=== PATIENT | female | born 1965 | race Caucasian/White ===

== ENCOUNTER 2021-03-13 15:00 | Emergency (ER) | payer OTHER, SELFPAY ==
--- NOTE | ~2021-03-13 | US_ITS ---
EXAMINATION: US VENOUS ULTRASOUND WITH DOPPLER LOWER EXTREMITY, LEFT CLINICAL INFORMATION: Swollen leg status post hysterectomy COMPARISON: None TECHNIQUE: Ultrasound of the deep veins is performed from the hip to the calf with compression sonography and color and pulse Doppler assessment. Spectral analysis with color-flow imaging is performed. FINDINGS: There is normal venous compression and respiratory variation and augmented flow. The visualized common femoral vein, superficial femoral vein, profunda femoral vein, popliteal vein, and the trifurcation region shows no evidence of deep venous thrombosis. There is no significant popliteal fossa cyst. There is a prominent left groin lymph node measuring 0.6 cm. US/US venous duplex LE LT IMPRESSION: No DVT demonstrated in the left lower extremity. Left groin lymph node may be reactive in the setting of recent surgical procedure.
[2021-03-13 15:35] VITALS: BP 104/66; PULSE 68; RESP 18; TEMP 37.1; O2SAT 96; BMI 24.9
--- NOTE | 2021-03-13 16:03 | PC.NURSE ---
LLE is red, taught, swollen, warm to touch. Pt states she had negative U/S last week and is currently on po abx. limping.
[2021-03-13 16:13] VITALS: BP 113/67; PULSE 61; RESP 16; TEMP 36.8; O2SAT 98
--- NOTE | 2021-03-13 16:29 | ED_ITS ---
HPI - General Adult General Chief complaint: General Medical <Manuelito Guerrero MD - Last Filed: 03/13/21 16:33> Stated complaint: swollen lt leg <Manuelito Guerrero MD - Last Filed: 03/13/21 16:33> Time Seen by Provider: 03/13/21 16:29 <Manuelito Guerrero MD - Last Filed: 03/13/21 16:33> Mode of arrival: ambulatory <Manuelito Guerrero MD - Last Filed: 03/13/21 16:33> Limitations: no limitations <Manuelito Guerrero MD - Last Filed: 03/13/21 16:33> History of Present Illness HPI narrative: swollen leg for 3 weeks, s/p hysterectomy. patient has had negative US and ddimer but her swelling is now worse. [facility] Now on 4 days of keflex with no improvement <Manuelito Guerrero MD - Last Filed: 03/13/21 16:33> Onset (ago): week(s) <Manuelito Guerrero MD - Last Filed: 03/13/21 16:33> Location: lower extremity <Manuelito Guerrero MD - Last Filed: 03/13/21 16:33> Severity: moderate <Manuelito Guerrero MD - Last Filed: 03/13/21 16:33> Relieving factors: none <Manuelito Guerrero MD - Last Filed: 03/13/21 16:33> Exacerbating factors: none <Manuelito Guerrero MD - Last Filed: 03/13/21 16:33> Related Data Home medications: Previous Rx's Medication Instructions Recorded doxycycline hyclate 100 mg capsule 100 mg PO BID 7 Days #14 cap 03/13/21 hydrocodone 5 mg-acetaminophen 325 1 tab PO Q6H PRN #12 tab 03/13/21 mg tablet <Manuelito Guerrero MD - Last Filed: 03/13/21 16:33> Allergies/adverse reactions: Allergies Allergy/AdvReac Type Severity Reaction Status Date / Time benztropine [From Cogentin] Allergy Unknown Verified 03/13/21 15:41 <Manuelito Guerrero MD - Last Filed: 03/13/21 16:33> Review of Systems Constitutional: Constitutional: Reports no additional constitutional complaints <Manuelito Guerrero MD - Last Filed: 03/13/21 16:33> Eyes: Eyes: Reports no additional eye complaints <Manuelito Guerrero MD - Last Filed: 03/13/21 16:33> ENT: Denies dizziness <Manuelito Guerrero MD - Last Filed: 03/13/21 16:33> Cardiovascular: Cardiovascular: Reports no additional cardiovascular complaints <Manuelito Guerrero MD - Last Filed: 03/13/21 16:33> Respiratory: Respiratory: Reports as per HPI <Manuelito Guerrero MD - Last Filed: 03/13/21 16:33> Gastrointestinal: Gastrointestinal: Reports no additional gastrointestinal complaints <Maneulito Guerrero MD - Last Filed: 03/13/21 16:33> Genitourinary: Genitourinary: Reports no additional female genitourinary complaints <Manuelito Guerrero MD - Last Filed: 03/13/21 16:33> Musculoskeletal: Musculoskeletal: Reports no additional musculoskeletal complaints <Manuelito Guerrero MD - Last Filed: 03/13/21 16:33> Integumentary/Breasts: Skin/Breast: Denies rash <Manuelito Guerrero MD - Last Filed: 03/13/21 16:33> Neurologic: Reports system reviewed and no additional complaints, except as documented, Denies dizziness and Denies Sensory deficit (Neuro) <Manuelito Guerrero MD - Last Filed: 03/13/21 16:33> Psychiatric: Psychiatric: Denies anxiety <Manuelito Guerrero MD - Last Filed: 03/13/21 16:33> [facility] Past Medical History Medical History: Medical History Asthma Depression Insomnia Mood disorder <Manuelito Guerrero MD - Last Filed: 03/13/21 16:33> Surgical History: Surgical History H/O: hysterectomy <Manuelito Guerrero MD - Last Filed: 03/13/21 16:33> Social History Social History: Social History Alcohol intake: never Patient Tobacco Use Status: Never used Tobacco Use of substances other than those prescribed or required for medical reasons: No Advance Directives: No Advance Directives Information Provided: Yes <Manuelito Guerrero MD - Last Filed: 03/13/21 16:33> Physical Exam Vital Signs: Vital Signs: Last Vital Signs Temp 97.7 F 03/13/21 17:40 Pulse 62 03/13/21 17:30 Resp 18 03/13/21 17:30 BP 117/91 H 03/13/21 17:30 Pulse Ox 96 03/13/21 17:30 Body Mass Index 24.9 <Manuelito Guerrero MD - Last Filed: 03/13/21 16:33> Vital Signs: Last Vital Signs Temp 97.7 F 03/13/21 17:40 Pulse 62 03/13/21 17:30 Resp 18 03/13/21 17:30 BP 117/91 H 03/13/21 17:30 Pulse Ox 96 03/13/21 17:30 Body Mass Index 24.9 <Rupinder Garcia DO - Last Filed: 03/13/21 18:28> Const: General: healthy appearing <Manuelito Guerrero MD - Last Filed: 03/13/21 16:33> Nutritional Appearance: average body habitus <Manuelito Guerrero MD - Last Filed: 03/13/21 16:33> Orientation/consciousness: oriented to person and patient oriented x3 <Manuelito Guerrero MD - Last Filed: 03/13/21 16:33> Limitations: no limitations <Manuelito Guerrero MD - Last Filed: 03/13/21 16:33> HENMT: Head: Yes normal to inspection <Manuelito Guerrero MD - Last Filed: 03/13/21 16:33> Ears: external ears normal <Manuelito Guerrero MD - Last Filed: 03/13/21 16:33> General nose exam: Normal external nose present <Manuelito Guerrero MD - Last Filed: 03/13/21 16:33> Mouth: Normal oral and palatal mucosa present and oropharynx normal <Manuelito Guerrero MD - Last Filed: 03/13/21 16:33> Throat: Yes posterior oropharynx normal <Manuelito Guerrero MD - Last Filed: 03/13/21 16:33> Eyes: General: appearance normal, both eyes and all related structures <Manuelito Guerrero MD - Last Filed: 03/13/21 16:33> Neck: Other: supple <Manuelito Guerrero MD - Last Filed: 03/13/21 16:33> Neck: Yes normal visual inspection <Manuelito Guerrero MD - Last Filed: 03/13/21 16:33> Chest: Chest palpation & inspection: normal inspection of the chest <Manuelito Guerrero MD - Last Filed: 03/13/21 16:33> Resp: Auscultation: clear to auscultation bilaterally <Manuelito Guerrero MD - Last Filed: 03/13/21 16:33> Cardio: Jugular venous distension: no JVD <Manuelito Guerrero MD - Last Filed: 03/13/21 16:33> Rate: regular rate <Manuelito Guerrero MD - Last Filed: 03/13/21 16:33> Rhythm: regular rhythm <Manuelito Guerrero MD - Last Filed: 03/13/21 16:33> Heart sounds: S1 normal heart sound present and S2 normal heart sound present <Manuelito Guerrero MD - Last Filed: 03/13/21 16:33> GI: Inspection: Yes normal to inspection <Manuelito Guerrero MD - Last Filed: 03/13/21 16:33> Palpation (GI): Soft to palpation, nontender and No hepatosplenomegaly present <Manuelito Guerrero MD - Last Filed: 03/13/21 16:33> Auscultation: normal bowel sounds <Manuelito Guerrero MD - Last Filed: 03/13/21 16:33> : General: Yes no CVA tenderness <Manuelito Guerrero MD - Last Filed: 03/13/21 16:33> Back/Spine/Pelvis: Back: no CVA tenderness <Manuelito Guerrero MD - Last Filed: 03/13/21 16:33> Skin: General skin exam: no rashes or lesions noted <Manuelito Guerrero MD - Last Filed: 03/13/21 16:33> Neuro: General: oriented to person and patient oriented x3 <Manuelito Guerrero MD - Last Filed: 03/13/21 16:33> Cranial nerves: Yes CN's II-XII intact bilaterally <Manuelito Guerrero MD - Last Filed: 03/13/21 16:33> Motor exam (neuro): 5/5 motor strength present throughout <Manuelito Guerrero MD - Last Filed: 03/13/21 16:33> Sensory Exam: No Sensory deficit (Neuro) <Manuelito Guerrero MD - Last Filed: 03/13/21 16:33> Extrem: Other: very swollen leg good pulse no erythema <Manuelito Guerrero MD - Last Filed: 03/13/21 16:33> Psych: Appearance: grossly normal <Manuelito Guerrero MD - Last Filed: 03/13/21 16:33> Course Course Course Narrative: sign out received - PO doxycycline will add on - PO pain medications given 48 hours to return leg is red and hot to touch, no proximal swelling, 2 neg DVT studies in 1 weeks time <Rupinder Garcia DO - Last Filed: 03/13/21 18:28> Medical Decision Making Lab Data Result diagrams: : 03/13/21 17:38 03/13/21 17:38 <Manuelito Guerrero MD - Last Filed: 03/13/21 16:33> Labs: Lab Results 03/13/21 03/13/21 Range/Units 17:38 17:38 WBC 6.7 (4.8-10.8) X10*3/uL RBC 3.98 L (4.20-5.50) X10*6/uL Hgb 11.2 L (12.0-16.0) g/dl Hct 35.1 L (37-47) % MCV 88.2 (80-98) fL MCH 28.1 (27.0-33.0) pg MCHC 31.9 (31.0-35.0) g/dl RDW 13.1 (11.0-16.0) % Plt Count 231 (160-400) X10*3/uL MPV 9.4 (9.4-12.3) fL Immature Gran % (Auto) 0.6 H (0.0-0.4) % Neut % (Auto) 52.2 (45-73) % Lymph % (Auto) 27.0 (20-40) % [place] % (Auto) 12.8 H (2-11) % Eos % (Auto) 6.8 H (0-4) % Baso % (Auto) 0.6 (0-2) % Lymph # (Auto) 1.8 (1.2-4.9) X10*3/uL [place] # (Auto) 0.9 (0.1-1.2) X10*3/uL Eos # (Auto) 0.5 H (0.0-0.4) X10*3/uL Baso # (Auto) 0.0 (0.0-0.2) X10*3/uL Abs Immat Gran (auto) 0.04 H (0.00-0.03) X10*3/uL Absolute Neuts (auto) 3.5 (2.0-8.3) X10*3/uL Absolute Nucleated RBC 0.000 (0.0-0.012) X10*3/uL Nucleated RBC % (auto) 0.0 (0.0-0.2) /100WBC Sodium 137 (135-145) mmol/L Potassium 4.4 (3.3-5.1) mmol/L Chloride 99 (96-108) mmol/L Carbon Dioxide 32 H (22-29) mmol/L Anion Gap 10 L (12-20) BUN 12 (9-16) mg/dL Creatinine 0.68 (0.5-1.4) mg/dL Estim Creat Clear Calc 86.2 Estimated GFR > 60 Random Glucose 95 (60-115) mg/dL Calcium 9.3 (8.4-10.2) mg/dL <Manuelito Guerrero MD - Last Filed: 03/13/21 16:33> Lab Results 03/13/21 03/13/21 Range/Units 17:38 17:38 WBC 6.7 (4.8-10.8) X10*3/uL RBC 3.98 L (4.20-5.50) X10*6/uL Hgb 11.2 L (12.0-16.0) g/dl Hct 35.1 L (37-47) % MCV 88.2 (80-98) fL MCH 28.1 (27.0-33.0) pg MCHC 31.9 (31.0-35.0) g/dl RDW 13.1 (11.0-16.0) % Plt Count 231 (160-400) X10*3/uL MPV 9.4 (9.4-12.3) fL Immature Gran % (Auto) 0.6 H (0.0-0.4) % Neut % (Auto) 52.2 (45-73) % Lymph % (Auto) 27.0 (20-40) % [place] % (Auto) 12.8 H (2-11) % Eos % (Auto) 6.8 H (0-4) % Baso % (Auto) 0.6 (0-2) % Lymph # (Auto) 1.8 (1.2-4.9) X10*3/uL [place] # (Auto) 0.9 (0.1-1.2) X10*3/uL Eos # (Auto) 0.5 H (0.0-0.4) X10*3/uL Baso # (Auto) 0.0 (0.0-0.2) X10*3/uL Abs Immat Gran (auto) 0.04 H (0.00-0.03) X10*3/uL Absolute Neuts (auto) 3.5 (2.0-8.3) X10*3/uL Absolute Nucleated RBC 0.000 (0.0-0.012) X10*3/uL Nucleated RBC % (auto) 0.0 (0.0-0.2) /100WBC Sodium 137 (135-145) mmol/L Potassium 4.4 (3.3-5.1) mmol/L Chloride 99 (96-108) mmol/L Carbon Dioxide 32 H (22-29) mmol/L Anion Gap 10 L (12-20) BUN 12 (9-16) mg/dL Creatinine 0.68 (0.5-1.4) mg/dL Estim Creat Clear Calc 86.2 Estimated GFR > 60 Random Glucose 95 (60-115) mg/dL Calcium 9.3 (8.4-10.2) mg/dL <Rupinder Garcia DO - Last Filed: 03/13/21 18:28> Discharge Plan Discharge Clinical Impression: Localized swelling of lower leg Cellulitis Qualifiers: Site of cellulitis: extremity Site of cellulitis of extremity: lower extremity Laterality: left Qualified Code(s): L03.116 - Cellulitis of left lower limb <Manuelito Guerrero MD - Last Filed: 03/13/21 16:33> Patient Disposition: Home, Self-Care <Mnauelito Guerrero MD - Last Filed: 03/13/21 16:33> Instructions: Cellulitis (ED) <Manuelito Guerrero MD - Last Filed: 03/13/21 16:33> Additional Instructions: return to ED for any worsening symptoms or concerns return if worsening symptoms or no improvement in 48 hours continue your cephalexin elevate the leg <Manuelito Guerrero MD - Last Filed: 03/13/21 16:33> Prescriptions: New doxycycline hyclate 100 mg capsule 100 mg PO BID 7 Days Qty: 14 RF: 0 hydrocodone-acetaminophen 5-325 mg tablet 1 tab PO Q6H PRN (Reason: pain) Qty: 12 RF: 0 <Manuelito Guerrero MD - Last Filed: 03/13/21 16:33> Stand Alone Forms: Work/School Release <Manuelito Guerrero MD - Last Filed: 03/13/21 16:33>
[2021-03-13 17:30] VITALS: BP 117/91; PULSE 62; RESP 18; O2SAT 96
[2021-03-13 17:40] VITALS: TEMP 36.5
[2021-03-13 17:45] LABS: MANUAL DIFF FLAG NO
[2021-03-13 17:48] LABS: Basophils Percent Auto 0.6 % (0-2); Eosinophils Absolute Auto 0.5 X10*3/uL (0.0-0.4); Eosinophils Percent Auto 6.8 % (0-4); Hematocrit 35.1 % (37-47); Hemoglobin 11.2 g/dl (12.0-16.0); Imm Gran Abs Auto 0.04 X10*3/uL (0.00-0.03); Imm Gran Pct Auto 0.6 % (0.0-0.4); Lymphocytes Absolute Auto 1.8 X10*3/uL (1.2-4.9); Mean Corpuscular HGB Conc 31.9 g/dl (31.0-35.0); Mean Corpuscular Hemoglobin 28.1 pg (27.0-33.0); Mean Corpuscular Volume 88.2 fL (80-98); Mean Platelet Volume 9.4 fL (9.4-12.3); Monocytes Absolute Auto 0.9 X10*3/uL (0.1-1.2); Monocytes Percent Auto 12.8 % (2-11); Neutrophils Absolute Auto 3.5 X10*3/uL (2.0-8.3); Neutrophils Percent Auto 52.2 % (45-73); Platelet Count 231 X10*3/uL (160-400); Red Blood Count 3.98 X10*6/uL (4.20-5.50); Red Cell Distribution Width 13.1 % (11.0-16.0); White Blood Count 6.7 X10*3/uL (4.8-10.8)
[2021-03-13 18:03] LABS: Anion Gap 10 (12-20); Blood Urea Nitrogen 12 mg/dL (9-16); Calcium 9.3 mg/dL (8.4-10.2); Carbon Dioxide 32 mmol/L (22-29); Chloride 99 mmol/L (96-108); Creatinine Clr Calc Pharmacy 86.2; Estimated Glomerular Filt Rate > 60; Glucose Random 95 mg/dL (60-115); Potassium 4.4 mmol/L (3.3-5.1); Sodium 137 mmol/L (135-145)
== END 2021-03-13 19:36 | disposition home or self-care (01) ==
PROVIDERS: Emergency Provider Emergency Medicine
DX: L03.116 Cellulitis of left lower limb (principal); R60.0 Localized edema; Z79.899 Other long term (current) drug therapy
CPT/HCPCS: 36415; 80048; 85025; 93971; 99284

== ENCOUNTER 2021-03-16 15:19 | Inpatient (IN) | payer OTHER, SELFPAY ==
--- NOTE | ~2021-03-16 | XR_ITS ---
EXAMINATION: LEFT TIB-FIB, LEFT ANKLE, LEFT FOOT CLINICAL INFORMATION: Left leg, ankle and foot swelling and pain COMPARISON: Left ankle and foot 12/31/2011 TECHNIQUE: 2 views left tib-fib, 2 views left ankle, 3 views left foot FINDINGS: The tibia and fibula appear unremarkable. The visualized knee joint appears normal. The ankle appears unremarkable. On the lateral foot radiograph, a tiny corticated bone density is seen just beneath the anterior calcaneus of questionable significance. No significant, bone joint or soft tissue abnormality is seen involving the foot. XR/XR tibia fibula LT 2V IMPRESSION: No evidence of an acute injury or etiology for the patient's leg, ankle and foot pain and swelling.
--- NOTE | ~2021-03-16 | XR_ITS ---
EXAMINATION: LEFT TIB-FIB, LEFT ANKLE, LEFT FOOT CLINICAL INFORMATION: Left leg, ankle and foot swelling and pain COMPARISON: Left ankle and foot 12/31/2011 TECHNIQUE: 2 views left tib-fib, 2 views left ankle, 3 views left foot FINDINGS: The tibia and fibula appear unremarkable. The visualized knee joint appears normal. The ankle appears unremarkable. On the lateral foot radiograph, a tiny corticated bone density is seen just beneath the anterior calcaneus of questionable significance. No significant, bone joint or soft tissue abnormality is seen involving the foot. XR/XR ankle LT min 3V IMPRESSION: No evidence of an acute injury or etiology for the patient's leg, ankle and foot pain and swelling.
--- NOTE | ~2021-03-16 | CT_ITS ---
EXAMINATION: CT LEFT LOWER LEG WITH CONTRAST. CLINICAL INFORMATION: left leg swelling/redness failed outpatient tx COMPARISON: None TECHNIQUE: Axial images obtained through the left lower leg after IV injection of 85 mL Omnipaque 350. Coronal and sagittal reformatted images are performed at CT scanner. FINDINGS: There is a small volume of fluid and edema in the subcutaneous tissue of the leg but there is no drainable fluid collection. No air collections in the soft tissue. There is no abscess. No abnormal enhancing lesion. No focal abnormality of muscle or of the bone. The knee and ankle joint are both unremarkable. CT/CT lower leg LT w con IMPRESSION: Mild edema in the subcutaneous tissues of the leg. There is no abscess or drainable fluid collection.
--- NOTE | ~2021-03-16 | XR_ITS ---
EXAMINATION: LEFT TIB-FIB, LEFT ANKLE, LEFT FOOT CLINICAL INFORMATION: Left leg, ankle and foot swelling and pain COMPARISON: Left ankle and foot 12/31/2011 TECHNIQUE: 2 views left tib-fib, 2 views left ankle, 3 views left foot FINDINGS: The tibia and fibula appear unremarkable. The visualized knee joint appears normal. The ankle appears unremarkable. On the lateral foot radiograph, a tiny corticated bone density is seen just beneath the anterior calcaneus of questionable significance. No significant, bone joint or soft tissue abnormality is seen involving the foot. XR/XR foot LT min 3V IMPRESSION: No evidence of an acute injury or etiology for the patient's leg, ankle and foot pain and swelling.
[2021-03-16 16:15] VITALS: BP 123/53; PULSE 57; RESP 163; TEMP 36.8; O2SAT 97; BMI 24.9
[2021-03-16 19:35] LABS: MANUAL DIFF FLAG NO
[2021-03-16 19:37] LABS: Basophils Percent Auto 0.6 % (0-2); Eosinophils Absolute Auto 0.2 X10*3/uL (0.0-0.4); Hematocrit 34.8 % (37-47); Hemoglobin 11.6 g/dl (12.0-16.0); Imm Gran Abs Auto 0.03 X10*3/uL (0.00-0.03); Imm Gran Pct Auto 0.6 % (0.0-0.4); Lymphocytes Absolute Auto 1.6 X10*3/uL (1.2-4.9); Lymphocytes Percent Auto 33.6 % (20-40); Mean Corpuscular HGB Conc 33.3 g/dl (31.0-35.0); Mean Corpuscular Hemoglobin 28.8 pg (27.0-33.0); Mean Corpuscular Volume 86.4 fL (80-98); Mean Platelet Volume 9.3 fL (9.4-12.3); Monocytes Absolute Auto 0.5 X10*3/uL (0.1-1.2); Monocytes Percent Auto 10.2 % (2-11); Neutrophils Absolute Auto 2.4 X10*3/uL (2.0-8.3); Platelet Count 207 X10*3/uL (160-400); Red Blood Count 4.03 X10*6/uL (4.20-5.50); Red Cell Distribution Width 12.9 % (11.0-16.0); White Blood Count 4.8 X10*3/uL (4.8-10.8)
[2021-03-16 19:43] LABS: Prothrombin Time 11.5 SEC (9.9-13.0)
[2021-03-16 19:48] LABS: Lactic Acid 0.5 mmol/L (0.5-2.0)
--- NOTE | 2021-03-16 19:48 | ED.SKABFB ---
HPI - Skin/Abscess/Foreign Bdy General Chief complaint: Skin/Abscess/Foreign Body Stated complaint: leg swollen pain pt states returning atfter 48 ho Time Seen by Provider: 03/16/21 18:13 Source: patient Mode of arrival: ambulatory Limitations: no limitations History of Present Illness HPI narrative: 55-year-old female with a past medical history of asthma, insomnia, osteoarthritis, bipolar, mood disorder and depression presenting to the ED with complaints of left leg/ankle/foot pain/swelling/redness over the past 3 weeks worse in the past week. Reports she was seen by her primary care provider and placed on Keflex 3 times a day for 7 days and has 1 day left. Reports that she was seen here on 03/13/2021 and had a negative ultrasound for DVT. She reports she was then placed on doxycycline and given [place] and she reports that she is taking the doxycycline as prescribed. She reports she is currently on Suboxone therefore is not taking the pain meds. She reports that before she actually started having the left leg/ankle/foot pain and swelling she actually had a mechanical fall at home and she has never had an x-ray and she is requesting an x-ray at this time. She denies any fevers, chills, dizziness, headaches, chest pain or shortness of breath, dyspnea on exertion, orthopnea, palpitations, abdominal pain, nausea/vomiting/diarrhea, constipation, dysuria, hematuria, black or bloody stools, new falls, recent travel or sick contacts or any other symptoms complaints or concerns at this time. MD complaint: other (Cellulitis failed outpatient antibiotic) Onset (ago): week(s) (Past 3 weeks worse in the past week) Location: LLE and L foot Severity: severe Severity scale (1-10): >10 Quality: aching and constant Pain Consistency: constant Relieving factors: none Exacerbating factors: palpation and movement Context: other (Currently on doxycycline and Keflex taking as prescribed and no improvement) Associated symptoms: denies other symptoms Treatments prior to arrival: other (See above) Related Data Home Medications Medication Instructions Recorded Confirmed aspirin 81 mg tablet,delayed 81 mg PO DAILY 03/16/21 03/16/21 release buprenorphine 8 mg-naloxone 2 mg 1 film SUBLINGUAL BEDTIME 03/16/21 03/16/21 sublingual film buprenorphine 8 mg-naloxone 2 mg 2 film SUBLINGUAL DAILY 03/16/21 03/16/21 sublingual film cephalexin 500 mg capsule 500 mg PO TID 03/16/21 03/16/21 divalproex 500 mg tablet,extended 500 mg PO TID 03/16/21 03/16/21 release 24 hr (Depakote ER) duloxetine 20 mg capsule,delayed 40 mg PO DAILY 03/16/21 03/16/21 release estradiol 1 g VAGINAL 2XW 03/16/21 03/16/21 gabapentin 300 mg capsule 300 mg PO BID@1000,1600 03/16/21 03/16/21 gabapentin 300 mg capsule 600 mg PO BID@0600,2100 03/16/21 03/16/21 lurasidone 20 mg tablet (Latuda) 20 mg PO BID 03/16/21 03/16/21 melatonin 3 mg tablet 3 mg PO BEDTIME 03/16/21 03/16/21 ondansetron HCl 4 mg tablet 4 mg PO DAILY 03/16/21 03/16/21 sodium chloride 0.65 % nasal spray 1 spray INTRANASAL DAILY PRN 03/16/21 03/16/21 aerosol (Deep Sea Nasal) vitamin B complex 1 tab PO DAILY 03/16/21 03/16/21 Previous Rx's Medication Instructions Recorded doxycycline hyclate 100 mg capsule 100 mg PO BID 7 Days #14 cap 03/13/21 Allergies Allergy/AdvReac Type Severity Reaction Status Date / Time benztropine [From Cogentin] Allergy Unknown Verified 03/13/21 15:41 Review of Systems Review of Systems: Constitutional : No Weight loss, No Fever, No Chills, No Night Sweats, No Fatigue, No Malaise ENT/Mouth : No Hearing loss, No Ear Pain, No Nasal Congestion, No Sinus Pain, No Hoarseness, No sore throat, No Rhinorrhea, No Swallowing Difficulty Eyes: No Eye Pain, No Swelling, No Redness, No Foreign Body, No Discharge, No Vision Changes Cardiovascular : No Chest Pain, No SOB, No Dyspnea on Exertion, No Orthopnea, No Edema, No Palpitations Respiratory : No Cough, No Sputum, No Wheezing, No Smoke Exposure, No Dyspnea Gastrointestinal : No Nausea, No Vomiting, No Diarrhea, No Constipation, No abdominal Pain, No Hematochezia, No Melena Genitourinary : no irregular bleeding, No Dysuria, No Urinary Frequency, No Hematuria, No Urinary Incontinence, No Urgency, No Flank Pain, No Urinary Flow Changes, No Hesitancy Musculoskeletal : Positive left leg/ankle/foot pain/swelling, No Myalgias Skin : Positive erythema/warmth to touch to left lower leg/ankle/foot, No Skin Lesions, No rash Neuro : No Weakness, No Numbness, No Paresthesias, No Loss of Consciousness, No Dizziness, No Headache Psych : No Anxiety/Panic, No Depression, No SI/HI/AH/VH, No Social Issues, Heme/Lymph: No Bruising, No Bleeding,No Lymphadenopathy Endocrine : No Polyuria, No Polydipsia, No Temperature Intolerance Yes all other systems are reviewed and are negative [facility] Past Medical History Attestation statement: The following information was validated with the patient. Medical History Asthma Depression Insomnia Mood disorder Surgical History H/O: hysterectomy Social History Social History Alcohol intake: current Alcohol intake frequency: holidays/special occasions only Patient Tobacco Use Status: Never used Tobacco Use of substances other than those prescribed or required for medical reasons: No Advance Directives: No Advance Directives Information Provided: No Patient : No Physical Exam Vital Signs: Vital Signs: Last Vital Signs Temp 98.2 F 03/16/21 19:53 Pulse 56 03/16/21 19:53 Resp 20 03/16/21 19:53 BP 122/71 03/16/21 19:53 Pulse Ox 97 03/16/21 19:53 Body Mass Index 24.9 vital signs have been reviewed as normal and appeared to be correct. Blood pressure mildly hypotensive 123/53. Heart rate normal. Respiration rate normal. Temperature normal. Oxygen saturation normal. Appearance: Alert. Oriented X3. No acute distress. Head: Normal external exam. Normocephalic. Atraumatic. Eyes: PERRLA. EOMI. Conjunctiva and sclera normal. Eyelids normal. ENT: Pharynx normal. Uvula midline. Moist mucous membranes. Neck: Normal inspection. Neck supple. FROM. No adenopathy. No meningeal signs. No neck mass noted. CVS: Normal heart rate and rhythm. Heart sound normal. Pulses normal throughout. No murmurs/rales/gallops. Respiratory: No respiratory distress. Painless inspiration. Breath sounds normal. No wheezes/rales/rhonchi noted. Chest nontender. No accessory muscle usage noted or decreased air movement noted. Abdomen: Soft and nontender. Bowel sounds normal in all 4 quadrants. No distention noted. No organomegaly noted. No visible injury noted. Back: Full range of motion noted. No rashes/lesion/induration/fluctuance or signs of infection noted. Skin: Skin warm and dry. Normal skin color. Normal skin turgor. No rashes/lesions/lacerations noted. Extremities: Patient with tenderness palpation/erythema/warmth to touch to the left lower leg mid to distal aspect/ankle/foot consistent with cellulitic infection. No obvious abscess or wounds noted. Patient with mild lower extremity edema. Otherwise all other Extremities exhibit normal range of motion and nontender. Neuro: Oriented X 3. No motor deficit. No sensory deficit. Reflexes normal. Normal steady gait. No focal neuro deficits noted. Vascular: + radial pulses/+ 2 distal pedal pulses/+2 dorsalis pedis b/l. Normal cap refill. No cyanosis noted to upper extremity nails and lower extremity toes nails. Course Course Course Narrative: 18:46pm - 55-year-old female with a past medical history of asthma, insomnia, osteoarthritis, bipolar, mood disorder and depression presenting to the ED with complaints of left leg/ankle/foot pain/swelling/redness over the past 3 weeks worse in the past week. Reports she was seen by her primary care provider and placed on Keflex 3 times a day for 7 days and has 1 day left. Reports that she was seen here on 03/13/2021 and had a negative ultrasound for DVT. She reports she was then placed on doxycycline and given [place] and she reports that she is taking the doxycycline as prescribed. She reports she is currently on Suboxone therefore is not taking the pain meds. She reports that before she actually started having the left leg/ankle/foot pain and swelling she actually had a mechanical fall at home and she has never had an x-ray and she is requesting an x-ray at this time. Plan: Labs, blood cultures, lactic acid, x-ray of left leg/ankle/foot. Provide a L of IV fluids along with Zosyn then re-evaluate anticipate to admit for failed outpatient treatment for cellulitis. Patient understands agrees with this plan. Reevaluation(s) Reevaluation #1: - labs return patient with a mild baseline anemia similar compared to prior. Sodium 130 this is new. Chloride 93. Carbon dioxide 32. Anion gap 9. BNP 118. Otherwise all other labs are within normal limits including lactic acid. UA within normal limits no evidence of UTI. COVID swab is negative. - x-ray of left lower leg/ankle/foot negative for any acute processes such as fractures or any other acute processes. - therefore at this time will admit for failed outpatient cellulitis and hyponatremia to Dr. Elaine. Dr. Elaine requested a CT scan of left lower extremity with contrast therefore ordered at this time he is septic admission. Patient understands agrees with this plan. Time: 20:04 MDM - Skin/Abscess/Foreign Bdy Medical Records Attestation: I reviewed the patient's medical records. Lab Data Attestation: I reviewed the patient's lab results. Result diagrams: 03/16/21 19:28 03/16/21 19:28 Labs: Lab Results 03/16/21 03/16/21 03/16/21 Range/Units 19:28 19:28 19:28 WBC 4.8 (4.8-10.8) X10*3/uL RBC 4.03 L (4.20-5.50) X10*6/uL Hgb 11.6 L (12.0-16.0) g/dl Hct 34.8 L (37-47) % MCV 86.4 (80-98) fL MCH 28.8 (27.0-33.0) pg MCHC 33.3 (31.0-35.0) g/dl RDW 12.9 (11.0-16.0) % Plt Count 207 (160-400) X10*3/uL MPV 9.3 L (9.4-12.3) fL Immature Gran % (Auto) 0.6 H (0.0-0.4) % Neut % (Auto) 50.0 (45-73) % Lymph % (Auto) 33.6 (20-40) % [place] % (Auto) 10.2 (2-11) % Eos % (Auto) 5.0 H (0-4) % Baso % (Auto) 0.6 (0-2) % Lymph # (Auto) 1.6 (1.2-4.9) X10*3/uL [place] # (Auto) 0.5 (0.1-1.2) X10*3/uL Eos # (Auto) 0.2 (0.0-0.4) X10*3/uL Baso # (Auto) 0.0 (0.0-0.2) X10*3/uL Abs Immat Gran (auto) 0.03 (0.00-0.03) X10*3/uL Absolute Neuts (auto) 2.4 (2.0-8.3) X10*3/uL Absolute Nucleated RBC 0.000 (0.0-0.012) X10*3/uL Nucleated RBC % (auto) 0.0 (0.0-0.2) /100WBC ESR (0-20) MM/HR Hold Purple Top SEE NOTE PT (9.9-13.0) SEC INR (0.9-1.1) Sodium (135-145) mmol/L Potassium (3.3-5.1) mmol/L Chloride (96-108) mmol/L Carbon Dioxide (22-29) mmol/L Anion Gap (12-20) BUN (9-16) mg/dL Creatinine (0.5-1.4) mg/dL Estim Creat Clear Calc Estimated GFR Random Glucose (60-115) mg/dL Lactic Acid (0.5-2.0) mmol/L Calcium (8.4-10.2) mg/dL Magnesium (1.6-2.6) mg/dL Total Bilirubin (0.0-1.0) mg/dL AST (5-31) U/L ALT (0-31) U/L Alkaline Phosphatase (39-117) U/L C-Reactive Protein (< or = 0.50) mg/dL B-Natriuretic Peptide (<100) pg/mL Total Protein (6.5-8.0) g/dL Albumin (3.5-5.0) g/dL Urine Color Urine Appearance Urine pH (5.0-8.0) Ur Specific [place] (1.005-1.025) Urine Protein (NEG-TRACE) MG/DL Urine Glucose (UA) (NEG) MG/DL Urine Ketones (NEG) MG/DL Urine Blood (NEG) Urine Nitrite (NEG) Ur Leukocyte Esterase (NEG) Urine RBC (0) /HPF Urine WBC (0-4) /HPF Ur Squamous Epith Cells /LPF Urine Bacteria /LPF COVID-19 (JANEEN) Negative (Negative) COVID-19 Clin Com See Note 03/16/21 03/16/21 03/16/21 Range/Units 19:28 19:28 19:28 WBC (4.8-10.8) X10*3/uL RBC (4.20-5.50) X10*6/uL Hgb (12.0-16.0) g/dl Hct (37-47) % MCV (80-98) fL MCH (27.0-33.0) pg MCHC (31.0-35.0) g/dl RDW (11.0-16.0) % Plt Count (160-400) X10*3/uL MPV (9.4-12.3) fL Immature Gran % (Auto) (0.0-0.4) % Neut % (Auto) (45-73) % Lymph % (Auto) (20-40) % [place] % (Auto) (2-11) % Eos % (Auto) (0-4) % Baso % (Auto) (0-2) % Lymph # (Auto) (1.2-4.9) X10*3/uL [place] # (Auto) (0.1-1.2) X10*3/uL Eos # (Auto) (0.0-0.4) X10*3/uL Baso # (Auto) (0.0-0.2) X10*3/uL Abs Immat Gran (auto) (0.00-0.03) X10*3/uL Absolute Neuts (auto) (2.0-8.3) X10*3/uL Absolute Nucleated RBC (0.0-0.012) X10*3/uL Nucleated RBC % (auto) (0.0-0.2) /100WBC ESR (0-20) MM/HR Hold Purple Top PT 11.5 (9.9-13.0) SEC INR 1.0 (0.9-1.1) Sodium 130 L (135-145) mmol/L Potassium 4.1 (3.3-5.1) mmol/L Chloride 93 L (96-108) mmol/L Carbon Dioxide 32 H (22-29) mmol/L Anion Gap 9 L (12-20) BUN 9 (9-16) mg/dL Creatinine 0.66 (0.5-1.4) mg/dL Estim Creat Clear Calc 88.8 Estimated GFR > 60 Random Glucose 79 (60-115) mg/dL Lactic Acid (0.5-2.0) mmol/L Calcium 9.2 (8.4-10.2) mg/dL Magnesium 1.8 (1.6-2.6) mg/dL Total Bilirubin 0.5 (0.0-1.0) mg/dL AST 19 (5-31) U/L ALT 12 (0-31) U/L Alkaline Phosphatase 57 (39-117) U/L C-Reactive Protein 0.18 (< or = 0.50) mg/dL B-Natriuretic Peptide 118 H (<100) pg/mL Total Protein 7.1 (6.5-8.0) g/dL Albumin 3.8 (3.5-5.0) g/dL Urine Color Urine Appearance Urine pH (5.0-8.0) Ur Specific [place] (1.005-1.025) Urine Protein (NEG-TRACE) MG/DL Urine Glucose (UA) (NEG) MG/DL Urine Ketones (NEG) MG/DL Urine Blood (NEG) Urine Nitrite (NEG) Ur Leukocyte Esterase (NEG) Urine RBC (0) /HPF Urine WBC (0-4) /HPF Ur Squamous Epith Cells /LPF Urine Bacteria /LPF COVID-19 (JANEEN) (Negative) COVID-19 Clin Com 03/16/21 03/16/21 03/16/21 Range/Units 19:29 19:33 19:46 WBC (4.8-10.8) X10*3/uL RBC (4.20-5.50) X10*6/uL Hgb (12.0-16.0) g/dl Hct (37-47) % MCV (80-98) fL MCH (27.0-33.0) pg MCHC (31.0-35.0) g/dl RDW (11.0-16.0) % Plt Count (160-400) X10*3/uL MPV (9.4-12.3) fL Immature Gran % (Auto) (0.0-0.4) % Neut % (Auto) (45-73) % Lymph % (Auto) (20-40) % [place] % (Auto) (2-11) % Eos % (Auto) (0-4) % Baso % (Auto) (0-2) % Lymph # (Auto) (1.2-4.9) X10*3/uL [place] # (Auto) (0.1-1.2) X10*3/uL Eos # (Auto) (0.0-0.4) X10*3/uL Baso # (Auto) (0.0-0.2) X10*3/uL Abs Immat Gran (auto) (0.00-0.03) X10*3/uL Absolute Neuts (auto) (2.0-8.3) X10*3/uL Absolute Nucleated RBC (0.0-0.012) X10*3/uL Nucleated RBC % (auto) (0.0-0.2) /100WBC ESR 13 (0-20) MM/HR Hold Purple Top PT (9.9-13.0) SEC INR (0.9-1.1) Sodium (135-145) mmol/L Potassium (3.3-5.1) mmol/L Chloride (96-108) mmol/L Carbon Dioxide (22-29) mmol/L Anion Gap (12-20) BUN (9-16) mg/dL Creatinine (0.5-1.4) mg/dL Estim Creat Clear Calc Estimated GFR Random Glucose (60-115) mg/dL Lactic Acid 0.5 (0.5-2.0) mmol/L Calcium (8.4-10.2) mg/dL Magnesium (1.6-2.6) mg/dL Total Bilirubin (0.0-1.0) mg/dL AST (5-31) U/L ALT (0-31) U/L Alkaline Phosphatase (39-117) U/L C-Reactive Protein (< or = 0.50) mg/dL B-Natriuretic Peptide (<100) pg/mL Total Protein (6.5-8.0) g/dL Albumin (3.5-5.0) g/dL Urine Color YELLOW Urine Appearance CLEAR Urine pH 7.0 (5.0-8.0) Ur Specific [place] <= 1.005 (1.005-1.025) Urine Protein NEG (NEG-TRACE) MG/DL Urine Glucose (UA) NEG (NEG) MG/DL Urine Ketones NEG (NEG) MG/DL Urine Blood NEG (NEG) Urine Nitrite NEG (NEG) Ur Leukocyte Esterase 1+ H (NEG) Urine RBC 0 (0) /HPF Urine WBC 0-2 (0-4) /HPF Ur Squamous Epith Cells TRACE /LPF Urine Bacteria TRACE /LPF COVID-19 (JANEEN) (Negative) COVID-19 Clin Com Imaging Data left leg/ankle/foot xray: Attestation: I personally reviewed and interpreted this imaging study as follows: Radiologist's impression: FINDINGS: The tibia and fibula appear unremarkable. The visualized knee joint appears normal. The ankle appears unremarkable. On the lateral foot radiograph, a tiny corticated bone density is seen? just beneath the anterior calcaneus of questionable significance. No significant, bone joint or soft tissue abnormality is seen involving the foot. XR/XR tibia fibula LT 2V IMPRESSION: No evidence of an acute injury or etiology for the patient's leg, ankle and foot pain and swelling.? CT scan of left lower extremity with contrast revealed: Attestation: I personally reviewed and interpreted this imaging study as follows: Radiologist's impression: FINDINGS: There is a small volume of fluid and edema in the subcutaneous tissue of the leg but there is no drainable fluid collection. No air collections in the soft tissue. There is no abscess. No abnormal enhancing lesion. No focal abnormality of muscle or of the bone. The knee and ankle joint are both unremarkable.? CT/CT lower leg LT w con IMPRESSION: Mild edema in the subcutaneous tissues of the leg. There is no abscess or drainable fluid collection.? Discharge Plan Discharge Clinical Impression: Cellulitis, Acute hyponatremia Patient Disposition: Admitted As Inpatient
[2021-03-16 19:51] LABS: COVID-19 Test Negative (Negative); IDNOW Serial# 9DD0AD1C
[2021-03-16 19:53] VITALS: BP 122/71; PULSE 56; RESP 20; TEMP 36.8; O2SAT 97
[2021-03-16 19:54] LABS: Alanine Aminotransferase 12 U/L (0-31); Albumin Level 3.8 g/dL (3.5-5.0); Alkaline Phosphatase 57 U/L (39-117); Anion Gap 9 (12-20); Aspartate Amino Transferase 19 U/L (5-31); Bilirubin Total 0.5 mg/dL (0.0-1.0); Blood Urea Nitrogen 9 mg/dL (9-16); Calcium 9.2 mg/dL (8.4-10.2); Carbon Dioxide 32 mmol/L (22-29); Chloride 93 mmol/L (96-108); Creatinine Clr Calc Pharmacy 88.8; Estimated Glomerular Filt Rate > 60; Glucose Random 79 mg/dL (60-115); Magnesium 1.8 mg/dL (1.6-2.6); Potassium 4.1 mmol/L (3.3-5.1); Sodium 130 mmol/L (135-145); Total Protein 7.1 g/dL (6.5-8.0)
[2021-03-16 19:56] LABS: Appearance Urine CLEAR; Color Urine YELLOW; Glucose Urine UA NEG (NEG); Leukocyte Esterase Urine 1+ (NEG); Nitrite Urine NEG (NEG); Specific Gravity - Urine <= 1.005 (1.005-1.025); UACC Culture Trigger YES; Urine Blood NEG (NEG); Urine Ketones NEG (NEG); Urine Protein NEG (NEG-TRACE)
[2021-03-16 19:57] LABS: B Type Natriuretic Peptide 118 pg/mL (<100)
[2021-03-16] MEDS: Piperacillin Sodium/Tazobactam 3.375 GM in 0.9 % Sodium Chloride 50 ML IV (19:57)
[2021-03-16] MEDS: Ibuprofen 600 MG TABLET PO (19:58)
[2021-03-16] MEDS: 0.9 % Sodium Chloride 1,000 ML 999 ML IVCONT (19:59)
[2021-03-16 20:06] LABS: Bacteria Urine TRACE /LPF; RBC Urine 0 /HPF (0); Squamous Epithelial Cell Urine TRACE /LPF; WBC Urine 0-2 /HPF (0-4)
[2021-03-16 20:07] LABS: C Reactive Protein 0.18 mg/dL (< or = 0.50)
--- NOTE | 2021-03-16 20:11 | PC.NURSE ---
pt a&o, no sob or chest pain. left lower left warm to touch. positive pedal pulses and cms. labs drawn and sent. Iv placed. medicated per mar. Area of concern is marked
--- NOTE | 2021-03-16 20:15 | P.HPHOSP_ITS ---
History of Present Illness Date of Service: 03/16/21 Chief Complaint: Left leg pain and swelling 55-year-old female with a past medical history of anxiety, depression, bipolar disorder, asthma, insomnia, opiate dependence on Suboxone presented to the hospital with a chief complaint of left leg pain and swelling for the past 3 weeks. Please refer she had a fall about 3 weeks ago and injured her left leg; since th en noted to have some discomfort in her left leg which has been gradually worsening and hence saw the PCP at the [facility] thought the patient had cellulitis and was given oral Keflex; on 03/13/2021 patient came to the ER given the symptoms are not improving when she had venous duplex done which showed no evidence of DVT; subsequently patient was discharged home on doxycycline. Patient reports that she has been taking her doxycycline with no significant improvement noted in her left leg. Denies any chest pain palpitations lightheadedness or dizziness. Denies any fevers. Denies any urinary symptoms. Review of all other systems is negative except mentioned above ER course: Per ER team patient left leg noted to be warm, tender, erythematous extending from the ankle mental for core of the left leg; no evidence of discharge; given Zosyn. Admitted to the hospital for further management. [facility] Medical History Asthma Depression Insomnia Mood disorder Pertinent family history: Reviewed Surgical History H/O: hysterectomy Social History Alcohol intake: current Alcohol intake frequency: holidays/special occasions only Patient Tobacco Use Status: Never used Tobacco Use of substances other than those prescribed or required for medical reasons: No Advance Directives: No Advance Directives Information Provided: No Patient : No Meds Allergies Allergy/AdvReac Type Severity Reaction Status Date / Time benztropine [From Cogentin] Allergy Unknown Verified 03/13/21 15:41 Active Medications: Current Medications Piperacillin Sod/Tazobactam (Sod 3.375 gm/ Sodium Chloride) 50 mls @ 100 mls/hr IV Q6H [facility] Vancomycin HCl 1,000 mg/ (Sodium Chloride) 270 mls @ 270 mls/hr IV Q12H [facility] Pharmacy Consult (Consult Rx Perform Med Rec) 1 each MISCELLANE ONCE PRN PRN Reason: Consult order Pharmacy Consult (Consult Rx Vancomycin Dosing) 1 each MISCELLANE DAILY PRN PRN Reason: Consult order Physical Exam Vital Signs and Narrative: Vital Signs: Last Vital Signs Temp 98.2 F 03/16/21 19:53 Pulse 56 03/16/21 19:53 Resp 20 03/16/21 19:53 BP 122/71 03/16/21 19:53 Pulse Ox 97 03/16/21 19:53 Body Mass Index 24.9 Gen: Appears be in no acute distress HEENT: NCAT, Moist mucosa. Pulmonary: Vesicular breath sounds, fair air entry CVS: Normal S1-S2 Abdomen: BS+, Soft, Nontender Extremities: Warm well perfused; left leg warm, tender, erythematous. Neuro: Alert and awake. Results Labs CBC and Chem 7: 03/16/21 19:28 03/16/21 19:28 Labs: Laboratory Results - last 24 hr 03/16/21 03/16/21 03/16/21 19:28 19:28 19:28 MCV 86.4 MCH 28.8 MCHC 33.3 RDW 12.9 Plt Count 207 MPV 9.3 L Immature Gran % (Auto) 0.6 H Neut % (Auto) 50.0 Lymph % (Auto) 33.6 [place] % (Auto) 10.2 Eos % (Auto) 5.0 H Baso % (Auto) 0.6 Lymph # (Auto) 1.6 [place] # (Auto) 0.5 Eos # (Auto) 0.2 Baso # (Auto) 0.0 Abs Immat Gran (auto) 0.03 Absolute Neuts (auto) 2.4 Absolute Nucleated RBC 0.000 Nucleated RBC % (auto) 0.0 Hold Purple Top SEE NOTE PT INR Anion Gap Estim Creat Clear Calc Estimated GFR Random Glucose Lactic Acid Calcium Magnesium Total Bilirubin AST ALT Alkaline Phosphatase C-Reactive Protein B-Natriuretic Peptide Total Protein Albumin Urine Color Urine Appearance Urine pH Ur Specific [place] Urine Protein Urine Glucose (UA) Urine Ketones Urine Blood Urine Nitrite Ur Leukocyte Esterase Urine RBC Urine WBC Ur Squamous Epith Cells Urine Bacteria COVID-19 (JANEEN) Negative COVID-19 Clin Com See Note 03/16/21 03/16/21 03/16/21 19:28 19:28 19:28 MCV MCH MCHC RDW Plt Count MPV Immature Gran % (Auto) Neut % (Auto) Lymph % (Auto) [place] % (Auto) Eos % (Auto) Baso % (Auto) Lymph # (Auto) [place] # (Auto) Eos # (Auto) Baso # (Auto) Abs Immat Gran (auto) Absolute Neuts (auto) Absolute Nucleated RBC Nucleated RBC % (auto) Hold Purple Top PT 11.5 INR 1.0 Anion Gap 9 L Estim Creat Clear Calc 88.8 Estimated GFR > 60 Random Glucose 79 Lactic Acid Calcium 9.2 Magnesium 1.8 Total Bilirubin 0.5 AST 19 ALT 12 Alkaline Phosphatase 57 C-Reactive Protein 0.18 B-Natriuretic Peptide 118 H Total Protein 7.1 Albumin 3.8 Urine Color Urine Appearance Urine pH Ur Specific [place] Urine Protein Urine Glucose (UA) Urine Ketones Urine Blood Urine Nitrite Ur Leukocyte Esterase Urine RBC Urine WBC Ur Squamous Epith Cells Urine Bacteria COVID-19 (JANEEN) COVID-19 [employer] 03/16/21 03/16/21 19:29 19:46 MCV MCH MCHC RDW Plt Count MPV Immature Gran % (Auto) Neut % (Auto) Lymph % (Auto) [place] % (Auto) Eos % (Auto) Baso % (Auto) Lymph # (Auto) [place] # (Auto) Eos # (Auto) Baso # (Auto) Abs Immat Gran (auto) Absolute Neuts (auto) Absolute Nucleated RBC Nucleated RBC % (auto) Hold Purple Top PT INR Anion Gap Estim Creat Clear Calc Estimated GFR Random Glucose Lactic Acid 0.5 Calcium Magnesium Total Bilirubin AST ALT Alkaline Phosphatase C-Reactive Protein B-Natriuretic Peptide Total Protein Albumin Urine Color YELLOW Urine Appearance CLEAR Urine pH 7.0 Ur Specific [place] <= 1.005 Urine Protein NEG Urine Glucose (UA) NEG Urine Ketones NEG Urine Blood NEG Urine Nitrite NEG Ur Leukocyte Esterase 1+ H Urine RBC 0 Urine WBC 0-2 Ur Squamous Epith Cells TRACE Urine Bacteria TRACE COVID-19 (JANEEN) COVID-19 Clin Com Imaging Radiologist's Impressions: Impressions Ankle X-Ray 03/16/21 18:46 IMPRESSION: No evidence of an acute injury or etiology for the patient's leg, ankle and foot pain and swelling. Foot X-Ray 03/16/21 18:46 IMPRESSION: No evidence of an acute injury or etiology for the patient's leg, ankle and foot pain and swelling. Tibia/Fibula X-Ray 03/16/21 18:46 IMPRESSION: No evidence of an acute injury or etiology for the patient's leg, ankle and foot pain and swelling. Assessment and Plan (1) Cellulitis: Status: Acute 55-year-old female with a past medical history of anxiety, depression, bipolar disorder, asthma, insomnia, opiate dependence on Suboxone presented to the hospital with a chief complaint of left leg pain and swelling. Noted left leg cellulitis or significant on outpatient antibiotics. Admitted for further management. Left leg cellulitis: Patient failed outpatient oral antibiotic therapy. Will keep the patient on IV vancomycin and Zosyn ID consult for further recommendations Will obtain a CT of the left leg Pain control History of anxiety/depression: Continue home medications. History of asthma: Stable History of opiate dependence: Patient on Suboxone. Addiction Medicine consult. DVT prophylaxis: Subcu heparin Code status: Full code Quality Stroke Does the patient have a stroke diagnosis?: No VTE Prior VTE?: No VTE Risk Level:: Medical - moderate - high VTE Device Contraindication: Treatment Not Indicated VTE Drug Contraindication: N/A - Med Ordered
[2021-03-16] MEDS: iohexoL 350 MG/ML 100 ML INFUS..BTL IV (20:31)
[2021-03-16] MEDS: Heparin Sodium,Porcine 5,000 UNIT/ML VIAL 5000 UNIT SUBCUT (20:52)
[2021-03-16] MEDS: 0.9 % Sodium Chloride 1,000 ML 100 ML IVCONT (20:53)
[2021-03-16] MEDS: vancomycin HCL 1,500 MG in 0.9 % Sodium Chloride 500 ML 333.33 MG IV (20:53)
--- NOTE | 2021-03-16 20:58 | PHA.MEDREC ---
Pharmacy Consult ? Medication Reconciliation Pharmacy has completed the medication reconciliation. There are no remarkable issues for provider's attention. Trice Allred, TrishaD
[2021-03-16 21:03] LABS: Erythrocyte Sedimentation Rate 13 MM/HR (0-20)
--- NOTE | 2021-03-16 21:13 | PHA.PROG ---
Admission Date/Time: March 16, 2021 20:13 Indication: Cellulitis Weight in k.771 kg Adjusted body weight in K.12 Jordan body weight in K.7 Serum Creatinine - Last 168 Hours 03/16/21 19:28 Creatinine 0.66 Estimated CrCl and GFR - Last 168 Hours 03/16/21 19:28 Estim Creat Clear Calc 88.8 Estimated GFR > 60 Vancomycin Loading Dose: 1500 mg Current Vancomycin Dosing Regimen: 1000 mg Q12H Date and Time for next Vancomycin Level to be drawn: 03/18 @ 0800 Pharmacist Comments on Vancomycin Plan: Loading dose of Vancomycin 1500 mg to be given in the ED at 2100 Start Maintenance dose Vancomycin 1000 mg Q12H on 03/07 @ 0900. Expected AUC of 514 with a trough of 15.6 Will drawn trough prior to 4th dose on 03/08 @ 0800 Pharmacy to monitor renal function daily and adjust if necessary Trice Allred, Dony Vancomycin dosing will take advantage of [employer] as a clinical decision support tool that uses Bayesian modeling to calculate individual patient's pharmacokinetic parameters and forecast the patient's drug concentration time course with the target goal AUC 24 range of 400 - 600 mg/L/hr.
--- NOTE | 2021-03-16 21:18 | PC.NURSE ---
medicated per mar.
[2021-03-16 22:40] VITALS: BP 109/64; PULSE 63; RESP 136; RESP 16; TEMP 36.8; O2SAT 95
--- NOTE | 2021-03-16 23:50 | PC.NURSE ---
pt oob with a steady gate. pt denies dizziness and lightheadedness.
[2021-03-16 23:54] VITALS: BP 113/64; PULSE 63; RESP 16; TEMP 37.2; O2SAT 99
[2021-03-17] VITALS: BP 102/59; PULSE 57; RESP 18; TEMP 36.4; O2SAT 98
[2021-03-17 00:42] VITALS: BMI 25.5
[2021-03-17] MEDS: Piperacillin Sodium/Tazobactam 3.375 GM in 0.9 % Sodium Chloride 50 ML IV ×3 (01:24→14:20)
[2021-03-17] MEDS: Divalproex Sodium ER 500 MG TAB.ER.24H PO ×3 (01:27→14:22)
[2021-03-17] MEDS: Gabapentin 300 MG CAPSULE 600 MG PO ×2 (01:27→07:42)
[2021-03-17] MEDS: Melatonin 3 MG TABLET 6 MG PO (01:28)
[2021-03-17] MEDS: Lurasidone HCl 20 MG TABLET PO ×2 (01:59→07:41)
[2021-03-17] MEDS: Heparin Sodium,Porcine 5,000 UNIT/ML VIAL 5000 UNIT SUBCUT ×2 (03:53→12:34)
[2021-03-17 06:27] LABS: MANUAL DIFF FLAG NO
[2021-03-17 06:52] LABS: Basophils Percent Auto 0.6 % (0-2); Eosinophils Absolute Auto 0.3 X10*3/uL (0.0-0.4); Eosinophils Percent Auto 6.9 % (0-4); Hematocrit 34.6 % (37-47); Hemoglobin 11.3 g/dl (12.0-16.0); Imm Gran Abs Auto 0.02 X10*3/uL (0.00-0.03); Imm Gran Pct Auto 0.6 % (0.0-0.4); Lymphocytes Absolute Auto 1.5 X10*3/uL (1.2-4.9); Lymphocytes Percent Auto 40.2 % (20-40); Mean Corpuscular HGB Conc 32.7 g/dl (31.0-35.0); Mean Corpuscular Hemoglobin 28.3 pg (27.0-33.0); Mean Corpuscular Volume 86.5 fL (80-98); Mean Platelet Volume 9.9 fL (9.4-12.3); Monocytes Absolute Auto 0.5 X10*3/uL (0.1-1.2); Monocytes Percent Auto 12.5 % (2-11); Neutrophils Absolute Auto 1.4 X10*3/uL (2.0-8.3); Neutrophils Percent Auto 39.2 % (45-73); Platelet Count 197 X10*3/uL (160-400); Red Cell Distribution Width 12.7 % (11.0-16.0); White Blood Count 3.6 X10*3/uL (4.8-10.8)
[2021-03-17 07:10] LABS: Anion Gap 14 (12-20); Blood Urea Nitrogen 7 mg/dL (9-16); Calcium 8.4 mg/dL (8.4-10.2); Carbon Dioxide 25 mmol/L (22-29); Chloride 100 mmol/L (96-108); Creatinine Clr Calc Pharmacy 97.2; Estimated Glomerular Filt Rate > 60; Glucose Random 77 mg/dL (60-115); Potassium 3.9 mmol/L (3.3-5.1); Sodium 135 mmol/L (135-145)
[2021-03-17] MEDS: Aspirin Enteric Coated 81 MG TABLET.DR PO (07:41)
[2021-03-17] MEDS: DULoxetine HCl 20 MG CAPSULE.DR 40 MG PO (07:41)
[2021-03-17] MEDS: Ondansetron ODT 4 MG TAB.RAPDIS TRANSLINGU (07:41)
[2021-03-17] MEDS: Multivitamin TABLET 1 TAB PO (07:41)
[2021-03-17 07:53] VITALS: BP 135/80; PULSE 57; RESP 18; TEMP 36.9; O2SAT 97
--- NOTE | 2021-03-17 08:55 | MHC.CM.PN ---
CM MET WITH PT WHO REPORTS SHE LIVES AT HOME WITH TWO ADULT CHILDREN PT REPORTS BEING INDEPENDENT WITH ALL CARE AND HAVING NO IN HOME SERVICES PT HAS A NEBULIZER FOR DME AND USES NO ASSISTIVE DEVICE TO AMBULATE PT REPORTS SHE HAS A HCP NAMING HER MIDDLE SON, [place], HER AGENT BUT SAYS WE CAN SHARE INFORMATION WITH ANY FAMILY MEMBERS THAT CALL. PT IS A AND REPORTS SHE IS SERVICE CONNECTED AND USES THE [place] [facility] CURRENT DC PLAN IS HOME WITH NO SERVICES PT WILL SELF ARRANGE TRANSPORT
[2021-03-17] MEDS: vancomycin HCL 1,000 MG in 0.9 % Sodium Chloride 250 ML 270 MG IV (09:23)
[2021-03-17] MEDS: Buprenorphine/Naloxone 8/2 mg FILM 2 FILM SUBLINGUAL (09:23)
[2021-03-17] MEDS: Gabapentin 300 MG CAPSULE PO ×2 (09:24→14:22)
--- NOTE | 2021-03-17 09:35 | MHC.RECOVRN ---
T/w met with pt in 479 after consult placed to Addiction Medicine for pt on Suboxone. 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 Pt is on 24 mg daily; two 8/2mg films in am, one 8/2 mg film at 1400. Pt last took Suboxone yesterday (03/16) at 1400. Prior to recovery, pt had been using opiate pills (which began after a back surgery). Pt reports using opiate pills in January after hysterectomy and not taking Suboxone during that time, under direction of . Pt reports ibuprofen is sufficient for pain control r/t cellulitis. Pt reports doing well with recovery and does not require additional supports. Provided pt with t/w card if questions or concerns arise. T/w available as needed. Discussed with Clare Pino APRN.
[2021-03-17 11:43] VITALS: BP 137/74; PULSE 59; RESP 18; TEMP 36.4; O2SAT 96
[2021-03-17] MEDS: 0.9 % Sodium Chloride 1,000 ML 100 ML IVCONT (12:33)
--- NOTE | 2021-03-17 14:32 | W.PM.IDCN ---
History of Present Illness Data of Consult Service Date: 03/17/21 Requesting physician: Abraham Thomas Primary Care Provider: Lynnette Cm MD [facility] Reason for consult: left leg swelling She has had swelling and reported redness in left leg over last month. She is reported to have multiple antibiotics including Doxycycline and still redness. I called her pharmacy [facility] on [address] and she received po Doxycycline 100 mg bid for 7 days this week. She received Bactrim last month for 3 days. The patient notes she has had venous procedures right leg in [place] she believes in past. She was referred to lymphedema clinic she reports by [facility] but hasnt gone yet. She says he treats her with antibiotic cream for dermatologic condition which causes red open sores on body. She denies MRSA. She also has a kitten and may have had scratches but on hand mostly. She also has no athletes foot or trauma to leg CT scan shows edema only. She has had hysterectomy and swollen lymph node .6 cm Review of Systems Review of Systems: Yes all other systems are reviewed and are negative PMFSH Past Medical History Medical History Asthma Depression Insomnia Leg swelling Mood disorder Family History Family history: reviewed and not pertinent Surgical History Surgical History H/O: hysterectomy Social History Social History Household Members: Children Housing: Apartment Do you presently have visiting nurse or other home services: No Alcohol intake: never Patient Tobacco Use Status: Never used Tobacco Use of substances other than those prescribed or required for medical reasons: Yes Substance Use Type: Marijuana Advance Directives: No Advance Directives Information Provided: No service: Yes Current occupational status: retired Meds Allergies Allergy/AdvReac Type Severity Reaction Status Date / Time benztropine [From Cogentin] Allergy Unknown Verified 03/13/21 15:41 Active Medications: Current Medications Acetaminophen (Acetaminophen 325 Mg Tablet) 650 mg PO Q6H PRN PRN Reason: Pain, Mild (Pain Scale 1-3) Aspirin (Aspirin Enteric Coated 81 Mg Tablet.) 81 mg PO DAILY KRISTY Last Admin: 03/17/21 07:41 Dose: 81 mg Documented by: Buprenorphine/Naloxone (Buprenorphine/Naloxone 8/2 Mg Film) 2 film SUBLINGUAL DAILY [facility] Last Admin: 03/17/21 09:23 Dose: 2 film Documented by: Buprenorphine/Naloxone (Buprenorphine/Naloxone 8/2 Mg Film) 1 film SUBLINGUAL DAILY [facility] Divalproex Sodium (Divalproex Sodium Er 500 Mg Tab.Er.24h) 500 mg PO TID [facility] Last Admin: 03/17/21 14:22 Dose: 500 mg Documented by: Duloxetine HCl (Duloxetine Hcl 20 Mg Capsule.Dr) 40 mg PO DAILY [facility] Last Admin: 03/17/21 07:41 Dose: 40 mg Documented by: Gabapentin (Gabapentin 300 Mg Capsule) 300 mg PO BID@1000,1600 [facility] Last Admin: 03/17/21 14:22 Dose: 300 mg Documented by: Gabapentin (Gabapentin 300 Mg Capsule) 600 mg PO BID@0600,2100 [facility] Last Admin: 03/17/21 07:42 Dose: 600 mg Documented by: Heparin Sodium (Porcine) (Heparin Sodium,Porcine 5,000 Unit/Ml Vial) 5,000 unit SUBCUT Q8H [facility] Last Admin: 03/17/21 12:34 Dose: 5,000 unit Documented by: Piperacillin Sod/Tazobactam (Sod 3.375 gm/ Sodium Chloride) 50 mls @ 100 mls/hr IV Q6H [facility] Last Admin: 03/17/21 14:20 Dose: 100 mls/hr Documented by: Vancomycin HCl 1,000 mg/ (Sodium Chloride) 270 mls @ 270 mls/hr IV Q12H [facility] Last Infusion: 03/17/21 11:02 Dose: Infused Documented by: Sodium Chloride (Ns) 1,000 mls @ 100 mls/hr IVCONT .Q10H [facility] Last Admin: 03/17/21 12:33 Dose: 100 mls/hr Documented by: Ketorolac Tromethamine (Ketorolac Tromethamine 30 Mg/Ml Vial) 15 mg IVPUSH Q6H PRN PRN Reason: Pain, Mild (Pain Scale 1-3) Stop: 03/21/21 20:12 Lurasidone HCl (Lurasidone Hcl 20 Mg Tablet) 20 mg PO BID [facility] Last Admin: 03/17/21 07:41 Dose: 20 mg Documented by: Magnesium Hydroxide (Milk Of Magnesia 30 Ml Oral.Susp) 30 ml PO DAILY PRN PRN Reason: Constipation Melatonin (Melatonin 3 Mg Tablet) 6 mg PO BEDTIME PRN PRN Reason: Insomnia Last Admin: 03/17/21 01:28 Dose: 6 mg Documented by: Multivitamins/Vitamin C (Multivitamin Tablet) 1 tab PO DAILY [facility] Last Admin: 03/17/21 07:41 Dose: 1 tab Documented by: Ondansetron HCl (Ondansetron Odt 4 Mg Tab.Rapdis) 4 mg TRANSLINGU DAILY [facility] Last Admin: 03/17/21 07:41 Dose: 4 mg Documented by: Pharmacy Consult (Consult Rx Perform Med Rec) 1 each MISCELLANE ONCE PRN PRN Reason: Consult order Pharmacy Consult (Consult Rx Vancomycin Dosing) 1 each MISCELLANE DAILY PRN PRN Reason: Consult order Senna (Sennosides 8.6 Mg Tablet) 17.2 mg PO BEDTIME PRN PRN Reason: Constipation Sodium Chloride (0.9 % Sodium Chloride Flush 3 Ml Syringe) 3 ml IVFLUSH QSHIFT [facility] Last Admin: 03/17/21 14:22 Dose: Not Given Documented by: Sodium Chloride (Sodium Chloride 0.65 % Nasal 44 Ml Sprbtl) 1 spray NOSTRIL-B DAILY PRN PRN Reason: Congestion Home Medications Medication Instructions Recorded Confirmed Last Taken Type aspirin 81 mg tablet,delayed 81 mg PO DAILY 03/16/21 03/16/21 03/16/21 History release buprenorphine 8 mg-naloxone 2 mg 1 film SUBLINGUAL BEDTIME 03/16/21 03/16/21 03/15/21 History sublingual film buprenorphine 8 mg-naloxone 2 mg 2 film SUBLINGUAL DAILY 03/16/21 03/16/21 03/16/21 History sublingual film divalproex 500 mg tablet,extended 500 mg PO TID 03/16/21 03/16/21 03/16/21 History release 24 hr (Depakote ER) duloxetine 20 mg capsule,delayed 40 mg PO DAILY 03/16/21 03/16/21 03/16/21 History release estradiol 1 g VAGINAL 2XW 03/16/21 03/16/21 Unknown History gabapentin 300 mg capsule 300 mg PO BID@1000,1600 03/16/21 03/16/21 03/16/21 History gabapentin 300 mg capsule 600 mg PO BID@0600,2100 03/16/21 03/16/21 03/16/21 History lurasidone 20 mg tablet (Latuda) 20 mg PO BID 03/16/21 03/16/21 03/16/21 History melatonin 3 mg tablet 3 mg PO BEDTIME 03/16/21 03/16/21 03/15/21 History ondansetron HCl 4 mg tablet 4 mg PO DAILY 03/16/21 03/16/21 03/16/21 History sodium chloride 0.65 % nasal spray 1 spray INTRANASAL DAILY PRN 03/16/21 03/16/21 Unknown History aerosol (Deep Sea Nasal) vitamin B complex 1 tab PO DAILY 03/16/21 03/16/21 03/16/21 History Physical Exam Vital Signs: Vital Signs: Last Vital Signs Temp 97.5 F 03/17/21 11:43 Pulse 59 03/17/21 11:43 Resp 18 03/17/21 11:43 BP 137/74 03/17/21 11:43 Pulse Ox 96 03/17/21 11:43 Body Mass Index 25.5 Const: General: cooperative HENMT: Head: Yes normal to inspection Mouth: Normal oral and palatal mucosa present Eyes: General: appearance normal, both eyes and all related structures Resp: Effort & Inspection: normal respiratory effort Cardio: Rate: regular rate Rhythm: regular rhythm GI: Palpation (GI): Soft to palpation and nontender Skin: General skin exam: no rashes or lesions noted Extrem: Other: swelling and bowing lateral left leg with areas of veins discomfort pointing toe due to swelling no tinea pedis no erythema at this time Results Labs CBC & Chem 7: 03/17/21 05:54 03/17/21 05:54 Labs: Short CBC 03/16/21 03/17/21 Range/Units 19:28 05:54 WBC 4.8 3.6 L (4.8-10.8) X10*3/uL Hgb 11.6 L 11.3 L (12.0-16.0) g/dl Hct 34.8 L 34.6 L (37-47) % Plt Count 207 197 (160-400) X10*3/uL BMP 03/16/21 03/17/21 19:28 05:54 Sodium 130 L 135 Potassium 4.1 3.9 Chloride 93 L 100 Carbon Dioxide 32 H 25 BUN 9 7 L Creatinine 0.66 0.61 Calcium 9.2 8.4 D Liver Function 03/16/21 Range/Units 19:28 Total Bilirubin 0.5 (0.0-1.0) mg/dL AST 19 (5-31) U/L ALT 12 (0-31) U/L Alkaline Phosphatase 57 (39-117) U/L Albumin 3.8 (3.5-5.0) g/dL Urine 03/16/21 Range/Units 19:46 Urine Color YELLOW Urine Appearance CLEAR Urine pH 7.0 (5.0-8.0) Ur Specific [place] <= 1.005 (1.005-1.025) Urine Protein NEG (NEG-TRACE) MG/DL Urine Glucose (UA) NEG (NEG) MG/DL Microbiology Microbiology Results: Microbiology 03/16/21 19:59 Urine clean catch - Urine estrada top Urine Culture - Preliminary No growth to date. Assessment and Plan (1) Leg swelling: Status: Acute there is no evidence of active inflammatory cellulitis at this time with no significant erythema,fever or leukocytosis there are areas of scratches concern over cat scratch (pasteurella.bartonella) Would hold IV antibiotics at this time and observe. Would have Vascular check for venous stasis/thrombophlebitis causes of swelling
[2021-03-17 15:20] VITALS: BP 118/74; PULSE 57; RESP 16; TEMP 36.5; O2SAT 97
--- NOTE | 2021-03-17 16:34 | PM.CNGS ---
History of Present Illness Consult details Consult date: 03/17/21 Reason for consult: other (Left leg swelling) Narrative: Very pleasant 55-year-old female who was admitted to the hospital with left lower extremity swelling. She had noticed it several weeks prior where she presented to her PCP at the [facility] and was prescribed oral antibiotics. It progressively got worse and she was subsequently admitted yesterday. She was started on Zosyn. She reports that the leg feels and looks significantly better since admission. She now presents to us for vascular evaluation. Of note she has had prior venous work done in end field on the left lower extremity. In addition she has had a prior venous stent for presumably May-Thurner syndrome. Review of Systems Constitutional: Constitutional: Reports as per HPI ENT: Reports system reviewed and no additional complaints, except as documented Cardiovascular: Cardiovascular: Denies chest pain, Denies chest pain at rest and Denies chest pain with activity Respiratory: Respiratory: Denies chest congestion and Denies cough Gastrointestinal: Gastrointestinal: Reports no additional gastrointestinal complaints Musculoskeletal: Musculoskeletal: Denies abnormal gait Integumentary/Breasts: Skin/Breast: Reports pruritus and Denies wounds Neurologic: Reports system reviewed and no additional complaints, except as documented and Denies abnormal gait Psychiatric: Psychiatric: Denies no additional psychiatric complaints [facility] Past Medical History Medical History (Updated 03/17/21 @ 16:37 by Victor M Rodriguez MD) Asthma Depression Insomnia Leg swelling Mood disorder Family History Family history: reviewed and not pertinent Surgical History Surgical History H/O: hysterectomy Social History Social History Household Members: Children Housing: Apartment Do you presently have visiting nurse or other home services: No Alcohol intake: current Alcohol intake frequency: holidays/special occasions only Patient Tobacco Use Status: Never used Tobacco Use of substances other than those prescribed or required for medical reasons: Yes Substance Use Type: Marijuana Substance Use Frequency: Daily Last Used Substance: Hours (ago) Currently Displaying Signs/Symptoms of Drug Intoxication Withdrawal: No Any prior treatment program specific to substance use: No Have you been hit, kicked, punched, or otherwise hurt by someone within the past year? If so, by whom?: No Do you feel safe in your current relationship?: No Current Relationship Is there a partner from a previous relationship who is making you feel unsafe now?: No Are you made to feel afraid or neglected: No Advance Directives: No Advance Directives Information Provided: No Do you have thoughts of harming others: None Do you have a plan to hurt others: No Plan Recently lost weight without trying: No Nutrition Risks: No Nutritional Risk Patient : No service: Yes Current occupational status: retired Meds Allergies Allergy/AdvReac Type Severity Reaction Status Date / Time benztropine [From Cogentin] Allergy Unknown Verified 03/13/21 15:41 Active Medications: Current Medications Acetaminophen (Acetaminophen 325 Mg Tablet) 650 mg PO Q6H PRN PRN Reason: Pain, Mild (Pain Scale 1-3) Aspirin (Aspirin Enteric Coated 81 Mg Tablet.) 81 mg PO DAILY [facility] Last Admin: 03/17/21 07:41 Dose: 81 mg Documented by: Buprenorphine/Naloxone (Buprenorphine/Naloxone 8/2 Mg Film) 2 film SUBLINGUAL DAILY [facility] Last Admin: 03/17/21 09:23 Dose: 2 film Documented by: Buprenorphine/Naloxone (Buprenorphine/Naloxone 8/2 Mg Film) 1 film SUBLINGUAL DAILY [facility] Divalproex Sodium (Divalproex Sodium Er 500 Mg Tab.Er.24h) 500 mg PO TID [facility] Last Admin: 03/17/21 14:22 Dose: 500 mg Documented by: Duloxetine HCl (Duloxetine Hcl 20 Mg Capsule.) 40 mg PO DAILY [facility] Last Admin: 03/17/21 07:41 Dose: 40 mg Documented by: Gabapentin (Gabapentin 300 Mg Capsule) 300 mg PO BID@1000,1600 [facility] Last Admin: 03/17/21 14:22 Dose: 300 mg Documented by: Gabapentin (Gabapentin 300 Mg Capsule) 600 mg PO BID@0600,2100 [facility] Last Admin: 03/17/21 07:42 Dose: 600 mg Documented by: Heparin Sodium (Porcine) (Heparin Sodium,Porcine 5,000 Unit/Ml Vial) 5,000 unit SUBCUT Q8H [facility] Last Admin: 03/17/21 12:34 Dose: 5,000 unit Documented by: Sodium Chloride (Ns) 1,000 mls @ 100 mls/hr IVCONT .Q10H [facility] Last Admin: 03/17/21 12:33 Dose: 100 mls/hr Documented by: Ketorolac Tromethamine (Ketorolac Tromethamine 30 Mg/Ml Vial) 15 mg IVPUSH Q6H PRN PRN Reason: Pain, Mild (Pain Scale 1-3) Stop: 03/21/21 20:12 Lurasidone HCl (Lurasidone Hcl 20 Mg Tablet) 20 mg PO BID [facility] Last Admin: 03/17/21 07:41 Dose: 20 mg Documented by: Magnesium Hydroxide (Milk Of Magnesia 30 Ml Oral.Susp) 30 ml PO DAILY PRN PRN Reason: Constipation Melatonin (Melatonin 3 Mg Tablet) 6 mg PO BEDTIME PRN PRN Reason: Insomnia Last Admin: 03/17/21 01:28 Dose: 6 mg Documented by: Multivitamins/Vitamin C (Multivitamin Tablet) 1 tab PO DAILY [facility] Last Admin: 03/17/21 07:41 Dose: 1 tab Documented by: Ondansetron HCl (Ondansetron Odt 4 Mg Tab.Rapdis) 4 mg TRANSLINGU DAILY [facility] Last Admin: 03/17/21 07:41 Dose: 4 mg Documented by: Pharmacy Consult (Consult Rx Perform Med Rec) 1 each MISCELLANE ONCE PRN PRN Reason: Consult order Pharmacy Consult (Consult Rx Vancomycin Dosing) 1 each MISCELLANE DAILY PRN PRN Reason: Consult order Senna (Sennosides 8.6 Mg Tablet) 17.2 mg PO BEDTIME PRN PRN Reason: Constipation Sodium Chloride (0.9 % Sodium Chloride Flush 3 Ml Syringe) 3 ml IVFLUSH QSHIFT [facility] Last Admin: 03/17/21 14:22 Dose: Not Given Documented by: Sodium Chloride (Sodium Chloride 0.65 % Nasal 44 Ml Sprbtl) 1 spray NOSTRIL-B DAILY PRN PRN Reason: Congestion Home Medications Medication Instructions Recorded Confirmed Last Taken Type aspirin 81 mg tablet,delayed 81 mg PO DAILY 03/16/21 03/16/21 03/16/21 History release buprenorphine 8 mg-naloxone 2 mg 1 film SUBLINGUAL BEDTIME 03/16/21 03/16/21 03/15/21 History sublingual film buprenorphine 8 mg-naloxone 2 mg 2 film SUBLINGUAL DAILY 03/16/21 03/16/21 03/16/21 History sublingual film cephalexin 500 mg capsule 500 mg PO TID 03/16/21 03/16/21 03/16/21 History divalproex 500 mg tablet,extended 500 mg PO TID 03/16/21 03/16/21 03/16/21 History release 24 hr (Depakote ER) duloxetine 20 mg capsule,delayed 40 mg PO DAILY 03/16/21 03/16/21 03/16/21 History release estradiol 1 g VAGINAL 2XW 03/16/21 03/16/21 Unknown History gabapentin 300 mg capsule 300 mg PO BID@1000,1600 03/16/21 03/16/21 03/16/21 History gabapentin 300 mg capsule 600 mg PO BID@0600,2100 03/16/21 03/16/21 03/16/21 History lurasidone 20 mg tablet (Latuda) 20 mg PO BID 03/16/21 03/16/21 03/16/21 History melatonin 3 mg tablet 3 mg PO BEDTIME 03/16/21 03/16/21 03/15/21 History ondansetron HCl 4 mg tablet 4 mg PO DAILY 03/16/21 03/16/21 03/16/21 History sodium chloride 0.65 % nasal spray 1 spray INTRANASAL DAILY PRN 03/16/21 03/16/21 Unknown History aerosol (Deep Sea Nasal) vitamin B complex 1 tab PO DAILY 03/16/21 03/16/21 03/16/21 History Physical Exam Vital Signs: Vital Signs: Last Vital Signs Temp 97.7 F 03/17/21 15:20 Pulse 57 03/17/21 15:20 Resp 16 03/17/21 15:20 BP 118/74 03/17/21 15:20 Pulse Ox 97 03/17/21 15:20 Body Mass Index 25.5 Const: General: cooperative, healthy appearing and comfortable Orientation/consciousness: oriented to person, oriented to place and oriented to time Neck: Carotids: no bruits Chest: Chest palpation & inspection: normal inspection of the chest and normal palpation of entire chest wall Resp: Effort & Inspection: normal respiratory effort and able to speak in complete sentences Cardio: Rate: regular rate Heart sounds: S1 normal heart sound present and S2 normal heart sound present Peripheral pulses: Peripheral pulses 2+ throughout GI: Inspection: Yes normal to inspection Skin: Other: +2 edema, left leg General skin exam: dry skin Neuro: General: oriented to person, oriented to place and oriented to time Extrem: General: Yes edema Right lower extremity: full ROM, normal capillary refill and edema Left lower extremity: full ROM, normal capillary refill and edema Psych: Mental Status: mental status grossly normal Results Labs Result diagrams: 03/17/21 05:54 03/17/21 05:54 Labs: Abnormal lab results 03/16/21 03/16/21 03/16/21 Range/Units 19:28 19:28 19:28 WBC (4.8-10.8) X10*3/uL RBC 4.03 L (4.20-5.50) X10*6/uL Hgb 11.6 L (12.0-16.0) g/dl Hct 34.8 L (37-47) % MPV 9.3 L (9.4-12.3) fL Immature Gran % (Auto) 0.6 H (0.0-0.4) % Neut % (Auto) (45-73) % Lymph % (Auto) (20-40) % [place] % (Auto) (2-11) % Eos % (Auto) 5.0 H (0-4) % Absolute Neuts (auto) (2.0-8.3) X10*3/uL Sodium 130 L (135-145) mmol/L Chloride 93 L (96-108) mmol/L Carbon Dioxide 32 H (22-29) mmol/L Anion Gap 9 L (12-20) BUN (9-16) mg/dL B-Natriuretic Peptide 118 H (<100) pg/mL Ur Leukocyte Esterase (NEG) 03/16/21 03/17/21 03/17/21 Range/Units 19:46 05:54 05:54 WBC 3.6 L (4.8-10.8) X10*3/uL RBC 4.00 L (4.20-5.50) X10*6/uL Hgb 11.3 L (12.0-16.0) g/dl Hct 34.6 L (37-47) % MPV (9.4-12.3) fL Immature Gran % (Auto) 0.6 H (0.0-0.4) % Neut % (Auto) 39.2 L (45-73) % Lymph % (Auto) 40.2 H (20-40) % [place] % (Auto) 12.5 H (2-11) % Eos % (Auto) 6.9 H (0-4) % Absolute Neuts (auto) 1.4 L (2.0-8.3) X10*3/uL Sodium (135-145) mmol/L Chloride (96-108) mmol/L Carbon Dioxide (22-29) mmol/L Anion Gap (12-20) BUN 7 L (9-16) mg/dL B-Natriuretic Peptide (<100) pg/mL Ur Leukocyte Esterase 1+ H (NEG) Short CBC 03/16/21 03/17/21 Range/Units 19:28 05:54 WBC 4.8 3.6 L (4.8-10.8) X10*3/uL Hgb 11.6 L 11.3 L (12.0-16.0) g/dl Hct 34.8 L 34.6 L (37-47) % Plt Count 207 197 (160-400) X10*3/uL BMP 03/16/21 03/17/21 19:28 05:54 Sodium 130 L 135 Potassium 4.1 3.9 Chloride 93 L 100 Carbon Dioxide 32 H 25 BUN 9 7 L Creatinine 0.66 0.61 Calcium 9.2 8.4 D Liver Function 03/16/21 Range/Units 19:28 Total Bilirubin 0.5 (0.0-1.0) mg/dL AST 19 (5-31) U/L ALT 12 (0-31) U/L Alkaline Phosphatase 57 (39-117) U/L Albumin 3.8 (3.5-5.0) g/dL Urine 03/16/21 Range/Units 19:46 Urine Color YELLOW Urine Appearance CLEAR Urine pH 7.0 (5.0-8.0) Ur Specific [place] <= 1.005 (1.005-1.025) Urine Protein NEG (NEG-TRACE) MG/DL Urine Glucose (UA) NEG (NEG) MG/DL All other labs normal. Imaging Additional studies: Lower extremity ultrasound negative for DVT, CT scan reviewed as well Assessment and Plan (1) May-Thurner syndrome: Status: Acute In short patient has had prior stenting for May-Thurner syndrome. I do believe she has residual swelling and deep reflux that has added to this swelling. She has been offloading the leg for the last 24 hours that is why presumably got better. I do not believe this is a true cellulitis. Would recommend compression stockings and offloading as much as possible. She does need her stent interrogated for potential collapse. She does have an outpatient follow-up with Dr. Boss for March 25. She will follow up with us on an as-needed basis. Thank you for the courtesy of this consultation. All information was related to the patient. The patient had an opportunity to ask questions regarding the treatment plan. All questions were answered. Imaging studies, laboratory studies and physical exam results were discussed and reviewed in detail. No major barriers to understanding were identified. The patient expressed understanding and agreement with the above treatment plan. The patient is aware they should contact our office by phone for worsening of the current condition or the appearance of new symptoms. Thank you for allowing me to participate in the vascular care of this patient. If you have any questions or concerns regarding the treatment for the above condition please do not hesitate to contact me. The office telephone contact is [phone]. This note is constructed using voice recognition software. While every effort has been made to ensure accuracy, displayer errors may have been included. Thank you for allowing me to participate in the care of your patient. Yours sincerely, Victor M Rodriguez MD, FACS, R.P.V.I. Procedures Date of Service Date of Service: 03/17/21
--- NOTE | 2021-03-17 17:35 | PM.DS ---
DS: Providers Provider Date of Service: 03/17/21 Date of admission: 03/16/21 20:13 Primary care physician: Lynnette Cm MD Consults: 03/16/21 20:10 Addiction Medicine Routine Consulting Provider: Clare Pino Reason for consultation: pt on suboxone 03/16/21 20:11 Consult to Infectious Diseases Routine Consulting Provider: Lucero Forte Reason for consultation: worsening left leg cellulitis; failed out pt abx rx 03/17/21 16:16 Consult to Vascular Surgery Routine Consulting Provider: Victor M Rodriguez Reason for consultation: swollen leg DS: Diagnosis Discharge Diagnosis (1) May-Thurner syndrome: Status: Acute DS: Summary Hospital Course Hospital Course: 55 year female with history of May-Thurner syndrome (MTS) is?caused when the left iliac vein is compressed by the right iliac artery, which increases the risk of deep vein thrombosis (DVT) in the left extremity, s/p iliac stent in the past. She is followed by a surgeon. She has been treated on outpatient basis for cellulitis first with Keflex for a week, then recently Doxycyline. She presented to the ED because of persitent swelling on the leg and not much of rednesss and was admittef for IV antiboitics (Zosyn and Vancomycin). US on 03/13 showed no DVT, CT of the leg, xray show no acute finding. She was seen by infectious disease and not convince that there is actibe inflamation and so antibiotics were discontinued. She was then seen by Dr. Rodriguez from Vascular and thought that her presentation is consistent with MTS and recommend Victor Manuel stocking and vascular follow up on outpatient basis. Time Spent with Patient Time attestation: Total time spent providing and/or coordinating discharge services: Discharge coordination time: Greater than 30 minutes Quality: Stroke Does the patient have a stroke diagnosis?: No Physical Exam Vital Signs: Vital Signs: Last Vital Signs Temp 97.7 F 03/17/21 15:20 Pulse 57 03/17/21 15:20 Resp 16 03/17/21 15:20 BP 118/74 03/17/21 15:20 Pulse Ox 97 03/17/21 15:20 Body Mass Index 25.5 General: AO X 3, no acute distress Resp: CTA bilateral CVS: S1,S2,RRR GI: +BS, NT, no distention Skin: No rash, swelling on of the leg leg compare to right, no redness and no tenderness, full range of motion [place] and normal cap refil Neuro: motor grossly intact Psych: appropriate affect DS: Data Data Completed and Pending Labs on day of discharge: Laboratory Results - last 24 hr 03/16/21 03/16/21 03/16/21 19:28 19:28 19:28 WBC 4.8 RBC 4.03 L Hgb 11.6 L Hct 34.8 L MCV 86.4 MCH 28.8 MCHC 33.3 RDW 12.9 Plt Count 207 MPV 9.3 L Immature Gran % (Auto) 0.6 H Neut % (Auto) 50.0 Lymph % (Auto) 33.6 [place] % (Auto) 10.2 Eos % (Auto) 5.0 H Baso % (Auto) 0.6 Lymph # (Auto) 1.6 [place] # (Auto) 0.5 Eos # (Auto) 0.2 Baso # (Auto) 0.0 Abs Immat Gran (auto) 0.03 Absolute Neuts (auto) 2.4 Absolute Nucleated RBC 0.000 Nucleated RBC % (auto) 0.0 ESR Hold Purple Top SEE NOTE PT INR Sodium Potassium Chloride Carbon Dioxide Anion Gap BUN Creatinine Estim Creat Clear Calc Estimated GFR Random Glucose Lactic Acid Calcium Magnesium Total Bilirubin AST ALT Alkaline Phosphatase C-Reactive Protein B-Natriuretic Peptide Total Protein Albumin Urine Color Urine Appearance Urine pH Ur Specific [place] Urine Protein Urine Glucose (UA) Urine Ketones Urine Blood Urine Nitrite Ur Leukocyte Esterase Urine RBC Urine WBC Ur Squamous Epith Cells Urine Bacteria COVID-19 (JANEEN) Negative COVID-19 Clin Com See Note 03/16/21 03/16/21 03/16/21 19:28 19:28 19:28 WBC RBC Hgb Hct MCV MCH MCHC RDW Plt Count MPV Immature Gran % (Auto) Neut % (Auto) Lymph % (Auto) [place] % (Auto) Eos % (Auto) Baso % (Auto) Lymph # (Auto) [place] # (Auto) Eos # (Auto) Baso # (Auto) Abs Immat Gran (auto) Absolute Neuts (auto) Absolute Nucleated RBC Nucleated RBC % (auto) ESR Hold Purple Top PT 11.5 INR 1.0 Sodium 130 L Potassium 4.1 Chloride 93 L Carbon Dioxide 32 H Anion Gap 9 L BUN 9 Creatinine 0.66 Estim Creat Clear Calc 88.8 Estimated GFR > 60 Random Glucose 79 Lactic Acid Calcium 9.2 Magnesium 1.8 Total Bilirubin 0.5 AST 19 ALT 12 Alkaline Phosphatase 57 C-Reactive Protein 0.18 B-Natriuretic Peptide 118 H Total Protein 7.1 Albumin 3.8 Urine Color Urine Appearance Urine pH Ur Specific [place] Urine Protein Urine Glucose (UA) Urine Ketones Urine Blood Urine Nitrite Ur Leukocyte Esterase Urine RBC Urine WBC Ur Squamous Epith Cells Urine Bacteria COVID-19 (JANEEN) COVID-19 Clin Com 03/16/21 03/16/21 03/16/21 19:29 19:33 19:46 WBC RBC Hgb Hct MCV MCH MCHC RDW Plt Count MPV Immature Gran % (Auto) Neut % (Auto) Lymph % (Auto) [place] % (Auto) Eos % (Auto) Baso % (Auto) Lymph # (Auto) [place] # (Auto) Eos # (Auto) Baso # (Auto) Abs Immat Gran (auto) Absolute Neuts (auto) Absolute Nucleated RBC Nucleated RBC % (auto) ESR 13 Hold Purple Top PT INR Sodium Potassium Chloride Carbon Dioxide Anion Gap BUN Creatinine Estim Creat Clear Calc Estimated GFR Random Glucose Lactic Acid 0.5 Calcium Magnesium Total Bilirubin AST ALT Alkaline Phosphatase C-Reactive Protein B-Natriuretic Peptide Total Protein Albumin Urine Color YELLOW Urine Appearance CLEAR Urine pH 7.0 Ur Specific [place] <= 1.005 Urine Protein NEG Urine Glucose (UA) NEG Urine Ketones NEG Urine Blood NEG Urine Nitrite NEG Ur Leukocyte Esterase 1+ H Urine RBC 0 Urine WBC 0-2 Ur Squamous Epith Cells TRACE Urine Bacteria TRACE COVID-19 (JANEEN) COVID-19 Clin Com 03/17/21 03/17/21 05:54 05:54 WBC 3.6 L RBC 4.00 L Hgb 11.3 L Hct 34.6 L MCV 86.5 MCH 28.3 MCHC 32.7 RDW 12.7 Plt Count 197 MPV 9.9 Immature Gran % (Auto) 0.6 H Neut % (Auto) 39.2 L Lymph % (Auto) 40.2 H [place] % (Auto) 12.5 H Eos % (Auto) 6.9 H Baso % (Auto) 0.6 Lymph # (Auto) 1.5 [place] # (Auto) 0.5 Eos # (Auto) 0.3 Baso # (Auto) 0.0 Abs Immat Gran (auto) 0.02 Absolute Neuts (auto) 1.4 L Absolute Nucleated RBC 0.000 Nucleated RBC % (auto) 0.0 ESR Hold Purple Top PT INR Sodium 135 Potassium 3.9 Chloride 100 Carbon Dioxide 25 Anion Gap 14 BUN 7 L Creatinine 0.61 Estim Creat Clear Calc 97.2 Estimated GFR > 60 Random Glucose 77 Lactic Acid Calcium 8.4 D Magnesium Total Bilirubin AST ALT Alkaline Phosphatase C-Reactive Protein B-Natriuretic Peptide Total Protein Albumin Urine Color Urine Appearance Urine pH Ur Specific [place] Urine Protein Urine Glucose (UA) Urine Ketones Urine Blood Urine Nitrite Ur Leukocyte Esterase Urine RBC Urine WBC Ur Squamous Epith Cells Urine Bacteria COVID-19 (JANEEN) COVID-19 Clin Com Preliminary micro results at discharge 03/16/21 19:59 Urine Culture - Preliminary Urine clean catch - Urine estrada top No growth to date. Discharge Plan Discharge Anticipated Discharge Date/Time: 03/17/21 17:03 Patient Disposition: Home, Self-Care Discharge Diagnosis: Cellulitis of the leg Referrals: Lynnette Cm MD [Primary Care Provider] - 1 Week Discharge Medications: Continued ondansetron HCl 4 mg tablet 4 mg PO DAILY RF: 0 aspirin 81 mg tablet,delayed release (DR/EC) 81 mg PO DAILY RF: 0 divalproex [Depakote ER] 500 mg tablet extended release 24 hr 500 mg PO TID RF: 0 gabapentin 300 mg capsule 600 mg PO BID@0600,2100 RF: 0 estradiol 0.01 % (0.1 mg/gram) cream 1 g vaginal 2XW RF: 0 sodium chloride [Deep Sea Nasal] 0.65 % aerosol,spray 1 spray intranasal DAILY PRN (Reason: Congestion) RF: 0 duloxetine 20 mg capsule,delayed release(DR/EC) 40 mg PO DAILY RF: 0 buprenorphine-naloxone 8-2 mg film 2 film sublingual DAILY RF: 0 Latuda 20 mg tablet 20 mg PO BID RF: 0 melatonin 3 mg Tablet 3 mg PO BEDTIME RF: 0 gabapentin 300 mg capsule 300 mg PO BID@1000,1600 RF: 0 vitamin B complex Tablet 1 tab PO DAILY RF: 0 buprenorphine-naloxone 8-2 mg film 1 film sublingual BEDTIME RF: 0 Discontinued doxycycline hyclate 100 mg capsule 100 mg PO BID 7 Days Qty: 14 RF: 0 cephalexin 500 mg capsule 500 mg PO TID RF: 0 Discharge Orders: Discharge Order (Routine); Ordered 03/17/21 Ordered By: Abraham Thomas Diet: advance to usual diet Activity on Discharge: As tolerated Stand Alone Forms: Patient Portal Discharge page Care Plan Goals: Resolution of swellin in the leg Health Concerns: May-Thurner syndrome (MTS) is?caused when the left iliac vein is compressed by the right iliac artery, which increases the risk of deep vein thrombosis (DVT) in the left extremity. Plan of Treatment: Victor Manuel barillas, follow up with your vascular surgeon. You don't need antibiotics anymore Assessment: as above
== END 2021-03-17 18:38 | disposition home or self-care (01) | DRG 300 ==
LOC: HO.ED 20:11 → HO.EDOVER 20:36 → HO.IMC 23:06
PROVIDERS: Physician Assistant Medical; Admitting Provider Hospitalist; Emergency Provider Internal Medicine; PCP Internal Medicine; Visit Provider Internal Medicine
DX: I87.1 Compression of vein (principal); E87.1 Hypo-osmolality and hyponatremia; F11.20 Opioid dependence, uncomplicated; J45.909 Unspecified asthma, uncomplicated; Z20.822 Contact with and (suspected) exposure to COVID-19; Z79.82 Long term (current) use of aspirin; Z79.899 Other long term (current) drug therapy
CPT/HCPCS: 36415; 73590; 73610; 73630; 73701; 80048; 80053; 81001; 83605; 83735; 83880; 85025; 85610; 85652; 86140; 87040; 87086; 87635; 99285; J2543; J3370; Q9967

== ENCOUNTER 2021-03-19 10:49 | Emergency (ER) | payer OTHER, SELFPAY ==
--- NOTE | ~2021-03-19 | CT_ITS ---
EXAMINATION: CT HEAD WITHOUT CONTRAST CLINICAL INFORMATION: Left facial numbness. Rule out stroke. COMPARISON: Previous head CT most recent March 2000 TECHNIQUE: Contiguous axial imaging was performed from the skull base to vertex without intravenous administration of contrast. This CT examination was performed using dose optimization techniques as appropriate, variously including the following: *Automated exposure control *Adjustment of mA and/or kV according to patient size (this includes techniques or standardized protocols for targeted exams where dose is matched to indication/reason for exam; i.e. extremities or head) *Use of iterative reconstruction technique DLP: 650 mGy-cm FINDINGS: There is no evidence of acute intracranial hemorrhage or territorial infarction. No abnormal mass effect or midline shift is seen. Greer to white matter differentiation is well preserved. No extra-axial fluid collections are identified. The ventricles are normal in size. There is no abnormal attenuation within the brain parenchyma. The osseous structures and soft tissues are normal. There is soft tissue thickening in the right maxillary sinus. The mastoid air cells and visualized portions of the paranasal sinuses are otherwise clear.. CT/CT head/brain wo con IMPRESSION: No acute intracranial pathology.
[2021-03-19 11:04] VITALS: BP 102/70; BP 128/77; PULSE 72; RESP 17; TEMP 36.8; O2SAT 97; O2SAT 99; BMI 24.0
--- NOTE | 2021-03-19 12:06 | ED_ITS ---
HPI - Neuro Symptoms/Deficit General Chief Complaint: Neuro Symptoms/Deficit Stated Complaint: L FACE NUMBNESS X'S 4 HRS,NEG STROKE SCALE PER EMS Time Seen by Provider: 03/19/21 11:39 Source: patient Mode of arrival: EMS Limitations: no limitations History of Present Illness HPI Narrative: 55-year-old female who presents emergency department for evaluation of intermittent left-sided facial numbness. Patient states this morning at 5:30 a.m. she got a coffee and was walking her dog when she had a sudden onset of left facial numbness. She describes this as a mild numb sensation involving the left side of the face sparing her neck in any other part of her body. She states that the numbness lasted approximately 10 minutes and then resolved. She states that around 10:00 a.m. in mild when she another facial numbness. She states that she also had a tingling sensation on her right arm. She denied any weakness of her face over her extremities. She states that the numbness persisted so she called an ambulance. By the time she arrived in the emergency department she states the numbness improved. I evaluated her on the ambulance stretcher and she had no neurologic findings. The patient states that she does walk her [place] but is not aware of any tick exposures. The patient had several recent visits to the emergency department and was hospitalized on 03/16/2021 for left lower extremity swelling rule out cellulitis with outpatient antibiotic failure. The patient has a history of May- Thurner syndrome (MTS) which in her case caused her left iliac vein to be compressed the left iliac artery with increased risk of DVT. The patient had several negative recent duplex ultrasounds DVT. The patient has a left iliac stent in place. The inpatient workup concluded that the patient's swelling and pain in her left lower extremity was caused by her MTS and vascular surgery recommended compression stockings. She states that the compression stockings have improve the swelling but not the pain of her left lower extremity. 55 year female with history of?May-Thurner syndrome (MTS) is?caused when the left iliac vein is compressed by the right iliac artery, which increases the risk of deep vein thrombosis (DVT) in the left extremity, s/p iliac stent in the past.? She is followed by a surgeon. She has been treated on outpatient basis for cellulitis first with Keflex for a week, then recently Doxycyline. She presented? to the ED because of persitent swelling on the leg and not much of rednesss and was admittef for IV antiboitics (Zosyn and Vancomycin).? US on 03/13 showed no DVT, CT of the leg, xray show no acute finding. She was seen by infectious disease and not convince that there is actibe inflamation and so antibiotics were discontinued. She was then seen by Dr. Rodriguez from Vascular and thought that her presentation is consistent with MTS and recommend Victor Manuel stocking and vascular follow up on outpatient basis. Related Data Home Medications Medication Instructions Recorded Confirmed aspirin 81 mg tablet,delayed 81 mg PO DAILY 03/16/21 03/16/21 release buprenorphine 8 mg-naloxone 2 mg 1 film SUBLINGUAL BEDTIME 03/16/21 03/16/21 sublingual film buprenorphine 8 mg-naloxone 2 mg 2 film SUBLINGUAL DAILY 03/16/21 03/16/21 sublingual film divalproex 500 mg tablet,extended 500 mg PO TID 03/16/21 03/16/21 release 24 hr (Depakote ER) duloxetine 20 mg capsule,delayed 40 mg PO DAILY 03/16/21 03/16/21 release estradiol 1 g VAGINAL 2XW 03/16/21 03/16/21 gabapentin 300 mg capsule 300 mg PO BID@1000,1600 03/16/21 03/16/21 gabapentin 300 mg capsule 600 mg PO BID@0600,2100 03/16/21 03/16/21 lurasidone 20 mg tablet (Latuda) 20 mg PO BID 03/16/21 03/16/21 melatonin 3 mg tablet 3 mg PO BEDTIME 03/16/21 03/16/21 ondansetron HCl 4 mg tablet 4 mg PO DAILY 03/16/21 03/16/21 sodium chloride 0.65 % nasal spray 1 spray INTRANASAL DAILY PRN 03/16/21 03/16/21 aerosol (Deep Sea Nasal) vitamin B complex 1 tab PO DAILY 03/16/21 03/16/21 Allergies Allergy/AdvReac Type Severity Reaction Status Date / Time benztropine [From Cogentin] Allergy Unknown Verified 03/13/21 15:41 Review of Systems Review of Systems: Yes all other systems are reviewed and are negative [facility] Past Medical History [facility] Narrative: Past medical history: May Thurner syndrome(patient's left iliac vein is being compressed by the left iliac artery, the patient has a left iliac vein stent). Social history: The patient denies tobacco and alcohol use. She denies drug use. She is currently in a Suboxone program. Medical History Asthma Depression Insomnia Leg swelling Mood disorder Surgical History H/O: hysterectomy Social History Social History Household Members: Children Housing: Apartment Do you presently have visiting nurse or other home services: No Alcohol intake: never Patient Tobacco Use Status: Never used Tobacco Use of substances other than those prescribed or required for medical reasons: Yes Substance Use Type: Marijuana Advance Directives: No Advance Directives Information Provided: No service: Yes Current occupational status: retired Physical Exam Vital Signs: Vital Signs: Last Vital Signs Temp 97.7 F 03/19/21 14:25 Pulse 62 03/19/21 14:25 Resp 20 03/19/21 14:25 BP 132/67 03/19/21 14:25 Pulse Ox 95 03/19/21 14:25 Body Mass Index 24.0 Const: General: cooperative and no acute distress Orientation/consciousness: oriented to person and oriented to place Limitations: no limitations HENMT: Head: Yes normal to inspection, Yes normocephalic and Yes atraumatic Ears: external ears normal General nose exam: Normal external nose present Face and sinus: Yes normal facial exam Mouth: Normal oral and palatal mucosa present Throat: Yes posterior oropharynx normal Eyes: General: appearance normal, both eyes and all related structures Pupils: Equal, round and reactive pupils present Neck: Neck: Yes normal visual inspection, Yes no lymphadenopathy, Yes trachea midline and Yes supple Chest: Chest palpation & inspection: normal inspection of the chest and normal palpation of entire chest wall Resp: Effort & Inspection: normal respiratory effort and able to speak in complete sentences Auscultation: clear to auscultation bilaterally Cardio: Rate: regular rate Rhythm: regular rhythm Heart sounds: S1 normal heart sound present, S2 normal heart sound present and no murmurs GI: Inspection: Yes normal to inspection Palpation (GI): Soft to palpation, nontender and no guarding Auscultation: normal bowel sounds : General: Yes no CVA tenderness Back/Spine/Pelvis: Back: no CVA tenderness Skin: General skin exam: no rashes or lesions noted Neuro: General: oriented to person and oriented to place Cranial nerves: Yes CN's II-XII intact bilaterally and Yes Equal, round and reactive pupils present Cognition (Neuro): normal cognition Motor exam (neuro): 5/5 motor strength present throughout Extrem: Other: Patient's left lower extremity is slightly larger than the right, she is wearing compression stockings these were not removed. Psych: Appearance: grossly normal Speech and movement: Normal speech and m ovement present Affect: normal affect Attitude: cooperative Thought process: Normal thought process present Thought content: Normal thought content present Course Course Course Narrative: 55-year-old female presents emergency department for evaluation of 2 episodes of intermittent left facial numbness which have now resolved. The patient's physical examination revealed no diminished light touch to her face and no facial weakness. Her neurologic exam was nonfocal. Her NIH stroke scale is 0. Differential includes was not limited to stroke and Hanson's palsy. I did order a CBC, CMP, CT scan of the brain to rule out stroke and tick-borne illness panel. MDM - Neuro Symptoms/Deficit Lab Data Result diagrams: 03/19/21 12:09 03/19/21 14:20 Labs: Lab Results 03/19/21 03/19/21 Range/Units 12:09 14:20 WBC 4.0 L (4.8-10.8) X10*3/uL RBC 3.59 L (4.20-5.50) X10*6/uL Hgb 10.3 L (12.0-16.0) g/dl Hct 31.2 L (37-47) % MCV 86.9 (80-98) fL MCH 28.7 (27.0-33.0) pg MCHC 33.0 (31.0-35.0) g/dl RDW 13.1 (11.0-16.0) % Plt Count 159 L (160-400) X10*3/uL MPV 9.4 (9.4-12.3) fL Immature Gran % (Auto) 0.2 (0.0-0.4) % Neut % (Auto) 49.1 (45-73) % Lymph % (Auto) 34.2 (20-40) % Robeson % (Auto) 12.0 H (2-11) % Eos % (Auto) 4.0 (0-4) % Baso % (Auto) 0.5 (0-2) % Lymph # (Auto) 1.4 (1.2-4.9) X10*3/uL Robeson # (Auto) 0.5 (0.1-1.2) X10*3/uL Eos # (Auto) 0.2 (0.0-0.4) X10*3/uL Baso # (Auto) 0.0 (0.0-0.2) X10*3/uL Abs Immat Gran (auto) 0.01 (0.00-0.03) X10*3/uL Absolute Neuts (auto) 2.0 (2.0-8.3) X10*3/uL Absolute Nucleated RBC 0.000 (0.0-0.012) X10*3/uL Nucleated RBC % (auto) 0.0 (0.0-0.2) /100WBC Sodium 133 L (135-145) mmol/L Potassium 5.3 H D (3.3-5.1) mmol/L Chloride 101 (96-108) mmol/L Carbon Dioxide 27 (22-29) mmol/L Anion Gap 10 L (12-20) BUN 8 L (9-16) mg/dL Creatinine 0.61 (0.5-1.4) mg/dL Estim Creat Clear Calc 88.9 Estimated GFR > 60 Random Glucose 73 (60-115) mg/dL Calcium 8.3 L (8.4-10.2) mg/dL Total Bilirubin 0.3 (0.0-1.0) mg/dL AST 31 D (5-31) U/L ALT 11 (0-31) U/L Alkaline Phosphatase 41 D (39-117) U/L Total Protein 6.8 (6.5-8.0) g/dL Albumin 3.3 L (3.5-5.0) g/dL Discharge Plan Discharge Clinical Impression: Facial numbness Patient Disposition: Home, Self-Care Instructions: Hanson Palsy (ED) Additional Instructions: At this time your examination was unremarkable. The CT scan of your brain did not reveal any significant abnormalities which is reassuring. I suspect that you may have Hanson's palsy but it is too early to make this diagnosis since the numbness is intermittent and you do not have any facial weakness. We did test you for Lyme disease and other tick-borne illnesses. These tests will come back in 3-7 days, you should follow-up with your doctor to get these test results. If you developed constant numbness and weakness of your face then you most likely have Hanson's palsy in you call your doctor or return to the emergency dep artment for treatment. Follow-up with your doctor in 2 days. Please return to the emergency department if your symptoms get worse or if you develop any symptoms that are concerning to you. Prescriptions: No Action ondansetron HCl 4 mg tablet 4 mg PO DAILY RF: 0 aspirin 81 mg tablet,delayed release (DR/EC) 81 mg PO DAILY RF: 0 divalproex [Depakote ER] 500 mg tablet extended release 24 hr 500 mg PO TID RF: 0 gabapentin 300 mg capsule 600 mg PO BID@0600,2100 RF: 0 estradiol 0.01 % (0.1 mg/gram) cream 1 g vaginal 2XW RF: 0 sodium chloride [Deep Sea Nasal] 0.65 % aerosol,spray 1 spray intranasal DAILY PRN (Reason: Congestion) RF: 0 duloxetine 20 mg capsule,delayed release(DR/EC) 40 mg PO DAILY RF: 0 buprenorphine-naloxone 8-2 mg film 2 film sublingual DAILY RF: 0 Latuda 20 mg tablet 20 mg PO BID RF: 0 melatonin 3 mg Tablet 3 mg PO BEDTIME RF: 0 gabapentin 300 mg capsule 300 mg PO BID@1000,1600 RF: 0 vitamin B complex Tablet 1 tab PO DAILY RF: 0 buprenorphine-naloxone 8-2 mg film 1 film sublingual BEDTIME RF: 0 Interventions: ED Discharge Assessment Last Done: 03/19/21 15:19 Discharge Date/Time: 03/19/21 15:20
[2021-03-19 12:18] LABS: MANUAL DIFF FLAG NO
[2021-03-19 12:19] LABS: Basophils Percent Auto 0.5 % (0-2); Eosinophils Absolute Auto 0.2 X10*3/uL (0.0-0.4); Hematocrit 31.2 % (37-47); Hemoglobin 10.3 g/dl (12.0-16.0); Imm Gran Abs Auto 0.01 X10*3/uL (0.00-0.03); Imm Gran Pct Auto 0.2 % (0.0-0.4); Lymphocytes Absolute Auto 1.4 X10*3/uL (1.2-4.9); Lymphocytes Percent Auto 34.2 % (20-40); Mean Corpuscular Hemoglobin 28.7 pg (27.0-33.0); Mean Corpuscular Volume 86.9 fL (80-98); Mean Platelet Volume 9.4 fL (9.4-12.3); Monocytes Absolute Auto 0.5 X10*3/uL (0.1-1.2); Neutrophils Percent Auto 49.1 % (45-73); Platelet Count 159 X10*3/uL (160-400); Red Blood Count 3.59 X10*6/uL (4.20-5.50); Red Cell Distribution Width 13.1 % (11.0-16.0)
[2021-03-19 14:25] VITALS: BP 132/67; PULSE 62; RESP 20; TEMP 36.5; O2SAT 95
[2021-03-19 14:48] LABS: Alanine Aminotransferase 11 U/L (0-31); Albumin Level 3.3 g/dL (3.5-5.0); Alkaline Phosphatase 41 U/L (39-117); Anion Gap 10 (12-20); Aspartate Amino Transferase 31 U/L (5-31); Bilirubin Total 0.3 mg/dL (0.0-1.0); Blood Urea Nitrogen 8 mg/dL (9-16); Calcium 8.3 mg/dL (8.4-10.2); Carbon Dioxide 27 mmol/L (22-29); Chloride 101 mmol/L (96-108); Creatinine Clr Calc Pharmacy 88.9; Estimated Glomerular Filt Rate > 60; Glucose Random 73 mg/dL (60-115); Potassium 5.3 mmol/L (3.3-5.1); Sodium 133 mmol/L (135-145); Total Protein 6.8 g/dL (6.5-8.0)
[2021-03-21 18:26] LABS: A. Phagocytphilium DNA,RT-PCR NOT DETECTED (NOT DETECTED); Babesia Microti DNA, RT-PCR NOT DETECTED (NOT DETECTED); Borrelia Miyamotoi,DNA RT-PCR NOT DETECTED (NOT DETECTED); E.Chaffeensis DNA RT-PCR NOT DETECTED (NOT DETECTED); Lyme(Borrelia ssp)DNA RT-PCR NOT DETECTED (NOT DETECTED); Source-Tick borne disease NOT GIVEN
== END 2021-03-19 15:20 | disposition home or self-care (01) ==
PROVIDERS: Emergency Provider Emergency Medicine Emergency Medical Services; PCP Internal Medicine
DX: R20.0 Anesthesia of skin (principal); I87.1 Compression of vein; F31.9 Bipolar disorder, unspecified; G47.00 Insomnia, unspecified
CPT/HCPCS: 36415; 70450; 80053; 85025; 87798; 87801; 99284

== ENCOUNTER 2021-04-22 19:30 | Emergency (ER) | payer OTHER, SELFPAY ==
--- NOTE | ~2021-04-22 | XR_ITS ---
EXAMINATION: XR WRIST, RIGHT CLINICAL INFORMATION: Trauma. Pain. COMPARISON: None TECHNIQUE: PA, lateral, and oblique views of the right wrist. FINDINGS: There is a displaced comminuted intra-articular fracture of the distal radius. There is displacement and dorsal angulation of the distal fracture fragments. There is a mildly displaced fracture through the base of the ulnar styloid. XR/XR wrist RT 2V IMPRESSION: Comminuted intra-articular fracture distal radius. Fracture through base of ulnar styloid.
--- NOTE | ~2021-04-22 | XR_ITS ---
EXAMINATION: XR WRIST, RIGHT CLINICAL INFORMATION: Reduction. COMPARISON: Wrist radiographs 04/22/2021 10:06 PM. TECHNIQUE: PA, lateral, and oblique views of the right wrist. FINDINGS: Comminuted intra-articular fracture of the distal radial metaphysis with extension to the distal radial subchondral margin is again noted with dorsal angulation of the major fracture fragments. Adjacent soft tissue inflammatory changes are visualized. Images are obtained with oblique orientation and a true lateral view is not obtained partially limiting precise evaluation of fracture fragment angulation. A 2 mm ossific body is present adjacent to the ulnar styloid process exhibiting well-corticated margins, possibly representing chronic injury. XR/XR wrist RT 2V IMPRESSION: Comminuted intra-articular fracture of the distal radius with dorsal angulation. The degree of dorsal angulation appears slightly decreased compared with 04/22/2021 10:05 PM.
--- NOTE | ~2021-04-22 | XR_ITS ---
EXAMINATION: XR HAND, RIGHT CLINICAL INFORMATION: Fall. COMPARISON: Right wrist radiographs 04/23/2021. TECHNIQUE: PA, lateral, and oblique views of the right hand. FINDINGS: Images are obtained with overlying splinting material which obscures visualization of fine underlying anatomic details. A comminuted fracture with intra-articular extension of the distal radius is noted with partial interval reduction in displacement of the previously noted fracture fragments. XR/XR hand RT min 3V IMPRESSION: Comminuted intra-articular distal radial fracture with interval improved anatomic alignment compared with 04/23/2021 12:35 AM.
[2021-04-22 19:35] VITALS: BP 140/70; PULSE 79; O2SAT 99
[2021-04-22 20:51] VITALS: BP 94/55; PULSE 67; RESP 16; TEMP 36.7; O2SAT 93
--- NOTE | 2021-04-22 22:01 | ED.EXTPRO ---
HPI - Extremity Problem General Chief complaint: Fall Stated complaint: broken R wrist? Time Seen by Provider: 04/22/21 21:53 Source: patient Mode of arrival: ambulatory Limitations: no limitations History of Present Illness HPI Narrative: Patient comes emergency room complaining of right wrist pain. Patient states that she was in the kitchen, the floor was wet and slippery, landed on an outstretched right hand. Patient denies hitting her head, no loss of consciousness, patient takes aspirin, no other blood thinners. Patient denies injuries anywhere else, complaining of localized wrist pain. Related Data Home Medications Medication Instructions Recorded Confirmed aspirin 81 mg tablet,delayed 81 mg PO DAILY 03/16/21 03/16/21 release buprenorphine 8 mg-naloxone 2 mg 1 film SUBLINGUAL BEDTIME 03/16/21 03/16/21 sublingual film buprenorphine 8 mg-naloxone 2 mg 2 film SUBLINGUAL DAILY 03/16/21 03/16/21 sublingual film divalproex 500 mg tablet,extended 500 mg PO TID 03/16/21 03/16/21 release 24 hr (Depakote ER) duloxetine 20 mg capsule,delayed 40 mg PO DAILY 03/16/21 03/16/21 release estradiol 1 g VAGINAL 2XW 03/16/21 03/16/21 gabapentin 300 mg capsule 300 mg PO BID@1000,1600 03/16/21 03/16/21 gabapentin 300 mg capsule 600 mg PO BID@0600,2100 03/16/21 03/16/21 lurasidone 20 mg tablet (Latuda) 20 mg PO BID 03/16/21 03/16/21 melatonin 3 mg tablet 3 mg PO BEDTIME 03/16/21 03/16/21 ondansetron HCl 4 mg tablet 4 mg PO DAILY 03/16/21 03/16/21 sodium chloride 0.65 % nasal spray 1 spray INTRANASAL DAILY PRN 03/16/21 03/16/21 aerosol (Deep Sea Nasal) vitamin B complex 1 tab PO DAILY 03/16/21 03/16/21 Previous Rx's Medication Instructions Recorded acetaminophen 650 mg 650 mg PO Q8H PRN #14 tab 04/23/21 tablet,extended release (Tylenol 8 Hour) oxycodone 5 mg tablet 5 mg PO BID PRN #7 tab 04/23/21 Allergies Allergy/AdvReac Type Severity Reaction Status Date / Time benztropine [From Cogentin] Allergy Unknown Verified 03/13/21 15:41 Review of Systems Review of Systems: Constitutional : No Weight loss, No Fever, No Chills, No Night Sweats, No Fatigue, No Malaise ENT/Mouth : No Hearing loss, No Ear Pain, No Nasal Congestion, No Sinus Pain, No Hoarseness, No sore throat, No Rhinorrhea, No Swallowing Difficulty Eyes: No Eye Pain, No Swelling, No Redness, No Foreign Body, No Discharge, No Vision Changes Cardiovascular : No Chest Pain, No SOB, No Dyspnea on Exertion, No Orthopnea, No Edema, No Palpitations Respiratory : No Cough, No Sputum, No Wheezing, No Smoke Exposure, No Dyspnea Gastrointestinal : No Nausea, No Vomiting, No Diarrhea, No Constipation, No abdominal Pain, No Hematochezia, No Melena Genitourinary : no irregular bleeding, No Dysuria, No Urinary Frequency, No Hematuria, No Urinary Incontinence, No Urgency, No Flank Pain, No Urinary Flow Changes, No Hesitancy Musculoskeletal : Complaining of right wrist pain, No Myalgias, No Joint Swelling Skin : No Skin Lesions, No rash Neuro : No Weakness, No Numbness, No Paresthesias, No Loss of Consciousness, No Dizziness, No Headache Psych : No Anxiety/Panic, No Depression, No SI/HI/AH/VH, No Social Issues, Heme/Lymph: No Bruising, No Bleeding,No Lymphadenopathy Endocrine : No Polyuria, No Polydipsia, No Temperature Intolerance PMFSH Past Medical History Medical History Asthma Depression Insomnia Leg swelling Mood disorder Surgical History H/O: hysterectomy Social History Social History Household Members: Children Housing: Apartment Do you presently have visiting nurse or other home services: No Alcohol intake: never Patient Tobacco Use Status: Never used Tobacco Use of substances other than those prescribed or required for medical reasons: Yes Substance Use Type: Marijuana Substance Use Frequency: Daily Last Used Substance: Hours (ago) Any prior treatment program specific to substance use: No Advance Directives: No Advance Directives Information Provided: Yes Patient : No service: Yes Current occupational status: retired Physical Exam Vital Signs: Vital Signs: Last Vital Signs Temp 98.5 F 04/23/21 01:01 Pulse 72 04/23/21 01:48 Resp 14 04/23/21 01:48 BP 152/77 H 04/23/21 01:48 Pulse Ox 97 04/23/21 01:48 Oxygen Flow Rate 0 04/23/21 01:01 BMI result Body Mass Index 24.9 Const: Other: Appearance: Alert. Oriented X3. No acute distress. Eyes: Pupils equal, round and reactive to light. ENT: Pharynx normal. Neck: Normal inspection. Neck supple. No lymph nodes noted. No crepitus CVS: Normal heart rate and rhythm. Pulses normal. Normal S1 and S2 Respiratory: No respiratory distress. Breath sounds normal. No Wheezing. No rales Abdomen: Soft and nontender. No rigidity. No distention Skin: Skin warm and dry. Normal skin color. Normal skin turgor. Extremities: No lower extremity edema. Complaining of right wrist pain, no elbow pain, patient able to flex and extend all fingers. Neuro: Oriented X 3. No motor deficit. No sensory deficit. Moving all extermities. No slurred speech. Course Course Course Narrative: X-rays shows a comminuted intra-articular fracture of the distal radius. I discussed the patient and the x-ray findings with PA from Orthopedics, we will go ahead and attempt reduction of the fracture. Patient is requesting to be moderately sedated as she is extremely anxious about only having a hematoma block for the procedure. Patient was given 2 milligrams/kilogram of IM ketamine. Good sedation effects. Reduction of right wrist was attempted. Slight improvement. Patient will follow up with Orthopedics, per Orthopedics, surgery will likely be on TuesdayApril 27 Patient is more awake, alert. Requesting pain medication. Patient was given IV Toradol. Once patient feels better, patient may be discharged. Sign-out given to Dr. Garcia MDM - Extremity (Nontraumatic) Imaging Data Right wrist x-ray: Radiologist's impression: FINDINGS: There is a displaced comminuted intra-articular fracture of the distal radius. There is displacement and dorsal angulation of the distal fracture fragments. There is a mildly displaced fracture through the base of the ulnar styloid.? XR/XR wrist RT 2V IMPRESSION: Comminuted intra-articular fracture distal radius. Fracture through base of ulnar styloid. Discharge Plan Discharge Clinical Impression: Radius/ulna fracture Qualifiers: Encounter type: initial encounter Fracture type: closed Laterality: right Qualified Code(s): S52.91XA - Unspecified fracture of right forearm, initial encounter for closed fracture Patient Disposition: Home, Self-Care Instructions: Wrist Fracture in Adults (ED), Closed Reduction (ED) Additional Instructions: Please follow-up with your primary care physician and Orthopedics tomorrow. If you have any worsening or new symptoms, please return to the emergency room or call 911 Prescriptions: New oxycodone 5 mg tablet 5 mg PO BID PRN (Reason: pain) Qty: 7 RF: 0 acetaminophen [Tylenol 8 Hour] 650 mg tablet extended release 650 mg PO Q8H PRN (Reason: pain) Qty: 14 RF: 0 No Action ondansetron HCl 4 mg tablet 4 mg PO DAILY RF: 0 aspirin 81 mg tablet,delayed release (DR/EC) 81 mg PO DAILY RF: 0 divalproex [Depakote ER] 500 mg tablet extended release 24 hr 500 mg PO TID RF: 0 gabapentin 300 mg capsule 600 mg PO BID@0600,2100 RF: 0 estradiol 0.01 % (0.1 mg/gram) cream 1 g vaginal 2XW RF: 0 sodium chloride [Deep Sea Nasal] 0.65 % aerosol,spray 1 spray intranasal DAILY PRN (Reason: Congestion) RF: 0 duloxetine 20 mg capsule,delayed release(DR/EC) 40 mg PO DAILY RF: 0 buprenorphine-naloxone 8-2 mg film 2 film sublingual DAILY RF: 0 Latuda 20 mg tablet 20 mg PO BID RF: 0 melatonin 3 mg Tablet 3 mg PO BEDTIME RF: 0 gabapentin 300 mg capsule 300 mg PO BID@1000,1600 RF: 0 vitamin B complex Tablet 1 tab PO DAILY RF: 0 buprenorphine-naloxone 8-2 mg film 1 film sublingual BEDTIME RF: 0
[2021-04-22] MEDS: oxyCODONE HCl Immed Release 5 MG TABLET PO (22:21)
[2021-04-22 22:27] VITALS: BP 94/51; PULSE 56; RESP 16; O2SAT 93
[2021-04-22 23:05] VITALS: BP 94/56; PULSE 55; RESP 16; O2SAT 93
[2021-04-22 23:24] VITALS: BP 104/59; PULSE 56; RESP 16; TEMP 36.7; O2SAT 93; BMI 24.9
--- NOTE | 2021-04-22 23:25 | ECG_ITS ---
Test Reason : FALL Blood Pressure : / mmHG Vent. Rate : 053 BPM Atrial Rate : 053 BPM P-R Int : 172 ms QRS Dur : 092 ms QT Int : 450 ms P-R-T Axes : 048 -12 014 degrees QTc Int : 422 ms Sinus bradycardia Nonspecific T wave abnormality Abnormal ECG When compared with ECG of 24-SEP-2015 08:16, Nonspecific T wave abnormality no longer evident in Lateral leads Referred By: Queta Greenberg Electronically Signed By:ANISHA TORRES
[2021-04-23] VITALS (11 sets, daily range): BP systolic 137–167; BP diastolic 72–101; PULSE 54–92; RESP 14–18; TEMP 36.4–36.9; O2SAT 97–99
[2021-04-23] MEDS: Ondansetron ODT 4 MG TAB.RAPDIS TRANSLINGU (00:16)
[2021-04-23] MEDS: Lidocaine HCl 2 % MPF 5 ML VIAL 10 ML INFILTRATI (00:16)
[2021-04-23] MEDS: Ketamine HCl 500 MG/5 ML VIAL 263.084 MG IM (00:17)
--- NOTE | 2021-04-23 01:06 | PC.NURSE ---
PT shantel close reduction of her right wrist. pt vitals remained stable, all protocals followed using the online documentation. pt was gieven ketamine 1.3ml im to the left deltoid. with dr randolph present, resp present, corinne castro, 2nd rn.
--- NOTE | 2021-04-23 01:16 | PC.NURSE ---
ketamine waisted with jose alfredo arauz the used portion was 1.3 ml given im and the rest of the medication bottle waisted in pyxis with jose alfredo arauz. [id number]
[2021-04-23] MEDS: Ketorolac Tromethamine 30 MG/ML VIAL IVPUSH (01:47)
[2021-04-23] MEDS: HYDROmorphone HCl 0.5 MG/0.5 ML SYRINGE IVPUSH (02:32)
[2021-04-23] MEDS: oxyCODONE HCl Immed Release 5 MG TABLET PO (03:41)
[2021-04-23] MEDS: Morphine Sulfate Immed Release 15 MG TABLET PO (04:53)
== END 2021-04-23 06:16 | disposition home or self-care (01) ==
PROVIDERS: Emergency Provider Emergency Medicine; PCP Internal Medicine
DX: S52.91XA Unspecified fracture of right forearm, initial encounter for closed fracture (principal); M25.531 Pain in right wrist; W01.0XXA Fall on same level from slipping, tripping and stumbling without subsequent striking against object, initial encounter; Y93.9 Activity, unspecified; Y92.000 Kitchen of unspecified non-institutional (private) residence as the place of occurrence of the external cause; Y99.9 Unspecified external cause status; F12.90 Cannabis use, unspecified, uncomplicated; Z79.899 Other long term (current) drug therapy
CPT/HCPCS: 25605; 73100; 73130; 93005; 96372; 96374; 96375; 99152; 99153; 99285; J1170; J1885

== ENCOUNTER 2022-04-01 14:00 | Outpatient (RCR) | payer OTHER, SELFPAY | END 2022-04-20 09:03 | disposition home or self-care (01) | LOC: HO.PT 14:00 | PROVIDERS: Visit Provider General Practice | DX: R85.618 Other abnormal cytological findings on specimens from anus (principal) | CPT/HCPCS: 97112; 97140; 97161 ==

== ENCOUNTER 2023-03-24 14:00 | Outpatient (RCR) | payer OTHER, SELFPAY | END 2023-05-12 14:27 | disposition home or self-care (01) | LOC: HO.PT 14:00 | PROVIDERS: PCP Internal Medicine; Visit Provider Surgery | DX: K62.3 Rectal prolapse (principal) | CPT/HCPCS: 97112; 97140; 97162 ==